=== PATIENT | female | born 1965 | race African-American/Black ===

== ENCOUNTER 2017-02-20 14:14 | Inpatient (IN) | payer OTHER, MEDICAID ==
[~2017-02-20] VITALS: Ht 170.2 cm; Wt 192.8 kg
[~2017-02-20 14:14] MED LIST: AMLODIPINE; BACTRIM; IBUPROFEN; LASIX; LOSARTAN; POTASSIUM CHLORIDE
[2017-02-20] MEDS ORDERED: NITROGLYCERIN OINT 1GM/INCH UDPKT TD STA (18:36)
[2017-02-20] MEDS ORDERED: ASPIRIN 81MG TABLET PO STA (18:36)
[2017-02-20] MEDS ORDERED: FUROSEMIDE 40MG/4ML VIAL IV STA (18:36)
[2017-02-20] MEDS ORDERED: CLONIDINE 0.1MG TABLET PO ONE (18:45)
[2017-02-20 19:25] LABS: BASOPHILS % 1.1 % (0.0-2.0); EOSINOPHILS % 0.9 % (0.0-5.0); HEMATOCRIT. 39.3 % (36.0-48.0); HEMOGLOBIN. 11.6 g/dL (12.0-16.0); LYMPHOCYTES % 20.6 % (20.0-50.0); MEAN CORPUSCULAR HEMOGLOBIN 21.8 pg (28.0-32.0); MEAN CORPUSCULAR VOLUME 73.9 fL (81.0-99.0); MEAN PLATELET VOLUME 8.6 fl (7.4-10.4); MONOCYTES % 6.3 % (2.0-8.0); NEUTROPHILS % 71.1 % (40.0-76.0); PLATELET 305 x1000/uL (130-400); RED BLOOD CELL COUNT 5.32 mill/uL (4.2-5.4); RED CELL DISTRIBUTION WIDTH 20.3 % (11.6-14.6)
[2017-02-20 19:31] LABS: CHLORIDE 101 mEq/L (98-107)
[2017-02-20 19:32] LABS: PARTIAL THROMBOPLASTIN TIME 25.2 sec (23.4-31.0); PROTHROMBIN TIME 10.9 sec (9.4-11.6)
[2017-02-20 19:36] LABS: CARBON DIOXIDE 35 mEq/L (21-32)
[2017-02-20 19:42] LABS: TROPONIN I < 0.02 ng/mL (0.00-0.04)
[2017-02-20] MEDS ORDERED: ENOXAPARIN 150MG/ML SYR SUBCUT ONE (21:45)
[2017-02-21] VITALS (7 sets, daily range): BP systolic 129–163; BP diastolic 51–90
[2017-02-21] MEDS ORDERED: DOCUSATE SODIUM 100MG CAPSULE PO PRN
[2017-02-21] MEDS ORDERED: ACETAMINOPHEN 650MG/20.3ML UDC GT PRN
[2017-02-21] MEDS ORDERED: GUAIFENESIN 200MG/10ML SUGAR FREE UDC PO PRN
[2017-02-21] MEDS ORDERED: MORPHINE SULFATE 4 MG/ML CPJ (NOT FOR IM USE) IV PRN
[2017-02-21] MEDS ORDERED: MAGNESIUM/ALUMINUM HYDROXIDE/SIMETHICONE 30ML UDC PO PRN
[2017-02-21] MEDS ORDERED: IPRATROPIUM/ALBUTEROL 0.5-3(2.5)MG/3ML NEB INH PRN
[2017-02-21] MEDS ORDERED: ACETAMINOPHEN 650MG SUPP PR PRN
[2017-02-21] MEDS ORDERED: NA PHOS,M-B/NA PHOS,DI-BA ENEMA 118ML PR PRN
[2017-02-21] MEDS ORDERED: DIPHENHYDRAMINE 50MG/ML VIAL IV PRN
[2017-02-21] MEDS ORDERED: ONDANSETRON HCL 4MG/2ML VIAL IV PRN
[2017-02-21] MEDS ORDERED: ENOXAPARIN 40MG/0.4ML SYR SUBCUT SCH
[2017-02-21] MEDS ORDERED: METOPROLOL (01:46)
[2017-02-21] MEDS ORDERED: LIPITOR (01:46)
[2017-02-21] MEDS ORDERED: LISI-186 PO (01:46)
[2017-02-21] MEDS: ACETAMINOPHEN 325MG TABLET PO PRN ×2 (02:39→23:46)
[2017-02-21] MEDS: FUROSEMIDE 40MG/4ML VIAL IV SCH ×2 (02:56→09:04)
[2017-02-21] MEDS ORDERED: ENOXAPARIN 60MG/0.6ML SYR SUBCUT SCH (03:00)
[2017-02-21 06:56] LABS: BASOPHILS % 0.8 % (0.0-2.0); HEMATOCRIT. 39.2 % (36.0-48.0); HEMOGLOBIN. 11.3 g/dL (12.0-16.0); LYMPHOCYTES % 21.4 % (20.0-50.0); MEAN CORPUSCULAR HEMOGLOBIN 21.5 pg (28.0-32.0); MEAN CORPUSCULAR VOLUME 74.3 fL (81.0-99.0); MEAN PLATELET VOLUME 7.1 fl (7.4-10.4); MONOCYTES % 5.9 % (2.0-8.0); NEUTROPHILS % 70.9 % (40.0-76.0); PLATELET 298 x1000/uL (130-400); RED BLOOD CELL COUNT 5.27 mill/uL (4.2-5.4); RED CELL DISTRIBUTION WIDTH 20.4 % (11.6-14.6)
[2017-02-21] MEDS: SODIUM CHLORIDE 0.9% INJ 3ML FLUSH IVF SCH (07:02)
[2017-02-21 07:58] LABS: CARBON DIOXIDE 35 mEq/L (21-32); CHLORIDE 100 mEq/L (98-107); CREATINE KINASE 167 IU/L (26-192); HDL CHOLESTEROL 53 mg/dL (40-59); LDL CHOLESTEROL 86 mg/dL (5-100)
[2017-02-21 07:59] LABS: CREATINE KINASE MB FRACTION 1.6 ng/mL (0.5-3.6); TROPONIN I < 0.02 ng/mL (0.00-0.04)
[2017-02-21] MEDS ORDERED: INFLUENZA VIRUS VACCINE 0.5ML SYR IM ONE (12:00)
[2017-02-21] MEDS ORDERED: PNEUMOCOCCAL 23-VAL P-SAC VAC 0.5 ML IM ONE (12:00)
[2017-02-21 12:06] LABS: T4 FREE 1.11 ng/dL (0.76-1.46)
[2017-02-21] MEDS ORDERED: HYDROCODONE/ACETAMINOPHEN 5/325MG TABLET PO PRN (12:30)
[2017-02-21 16:29] LABS: CREATINE KINASE 186 IU/L (26-192); TROPONIN I < 0.02 ng/mL (0.00-0.04)
[2017-02-21 16:30] LABS: CREATINE KINASE MB FRACTION 1.6 ng/mL (0.5-3.6)
[2017-02-21 23:27] LABS: CLARITY URINE TURBID (CLEAR); COLOR URINE RED (YELLOW); KETONES URINE NEGATIVE (NEGATIVE); LEUKOCYTE ESTERASE URINE 2+ (NEGATIVE); NITRITE URINE POSITIVE (NEGATIVE); OCCULT BLOOD URINE 3+ (NEGATIVE); PROTEIN URINE 2+ (NEGATIVE); UROBILINOGEN URINE 0.2 E.U./dL (0.2-1.0)
[2017-02-21] MEDS: CLONIDINE 0.1MG TABLET PO PRN (23:53)
[2017-02-22] VITALS: BP 132/57
[2017-02-22 00:19] LABS: *AMPHETAMINES SCREEN URINE NEGATIVE (NEGATIVE); *BARBITURATES SCREEN URINE NEGATIVE (NEGATIVE); *BENZODIAZEPINES SCREEN URINE NEGATIVE (NEGATIVE); *COCAINE SCREEN URINE PRESUMTIVE POSITIVE (NEGATIVE); CANNABINOID URINE SCREEN NEGATIVE (NEGATIVE); METHADONE URINE SCREEN NEGATIVE (NEGATIVE); OPIATES URINE SCREEN NEGATIVE (NEGATIVE); PHENCYCLIDINE URINE SCREEN NEGATIVE (NEGATIVE)
[2017-02-22 04:00] VITALS: BP 135/59
[2017-02-22] MEDS: SODIUM CHLORIDE 0.9% INJ 3ML FLUSH IVF SCH ×3 (06:45→13:39)
[2017-02-22 08:00] VITALS: BP 135/55
[2017-02-22] MEDS: FUROSEMIDE 40MG/4ML VIAL IV SCH (09:48)
[2017-02-22 10:48] LABS: BASOPHILS % 0.9 % (0.0-2.0); EOSINOPHILS % 0.3 % (0.0-5.0); HEMATOCRIT. 38.5 % (36.0-48.0); HEMOGLOBIN. 11.7 g/dL (12.0-16.0); LYMPHOCYTES % 17.2 % (20.0-50.0); MEAN CORPUSCULAR HEMOGLOBIN 22.5 pg (28.0-32.0); MEAN CORPUSCULAR VOLUME 74.2 fL (81.0-99.0); MEAN PLATELET VOLUME 7.2 fl (7.4-10.4); MONOCYTES % 6.2 % (2.0-8.0); NEUTROPHILS % 75.4 % (40.0-76.0); PLATELET 297 x1000/uL (130-400); RED BLOOD CELL COUNT 5.19 mill/uL (4.2-5.4); RED CELL DISTRIBUTION WIDTH 20.2 % (11.6-14.6)
[2017-02-22 11:02] LABS: CARBON DIOXIDE 38 mEq/L (21-32); CHLORIDE 97 mEq/L (98-107)
[2017-02-22 12:00] VITALS: BP 161/85
[2017-02-22] MEDS: CLONIDINE 0.1MG TABLET PO PRN ×2 (12:39→19:57)
[2017-02-22 16:00] VITALS: BP 157/61
== END 2017-02-22 20:40 | disposition short-term general hospital (02) | DRG 291 ==
LOC: ER 14:51 → 5WST 20:19 → EDBEDREQ 20:21 → EDBEDREQTM 20:21 → ENRESERV 21:04
PROVIDERS: ADMIT Family Medicine; ATTEND Family Medicine
DX: I11.0 Hypertensive heart disease with heart failure (principal); E43 Unspecified severe protein-calorie malnutrition; E66.01 Morbid (severe) obesity due to excess calories; Z68.44 Body mass index [BMI] 60.0-69.9, adult; R71.0 Precipitous drop in hematocrit; R07.9 Chest pain, unspecified; I50.33 Acute on chronic diastolic (congestive) heart failure; D25.9 Leiomyoma of uterus, unspecified; F12.90 Cannabis use, unspecified, uncomplicated; G47.33 Obstructive sleep apnea (adult) (pediatric); Z86.711 Personal history of pulmonary embolism; Z88.0 Allergy status to penicillin; Z88.5 Allergy status to narcotic agent
CPT/HCPCS: 36415; 71045; 76856; 78580; 80053; 80061; 80305; 81001; 82550; 82553; 82962; 83036; 83880; 84439; 84443; 84484; 85018; 85025; 85379; 85610; 85730; 87077; 87086; 87186; 90686; 90732; 93005; 93970; 96372; 96374; 99285; J1650; J1940; J2270; A4315

== ENCOUNTER 2018-03-24 13:27 | Inpatient (IN) | payer OTHER, MEDICAID ==
[~2018-03-24] VITALS: Ht 165.1 cm; Wt 166.0 kg
[2018-03-24] VITALS (11 sets, daily range): BP systolic 119–181; BP diastolic 64–92
[~2018-03-24 13:27] MED LIST changes: +LIPITOR; +LISI-186 PO; +METOPROLOL
[2018-03-24] MEDS ORDERED: METHYLPREDNISOLONE SOD SUCC 125 MG/2 ML VIAL IV STA (13:32)
[2018-03-24] MEDS ORDERED: IPRATROPIUM BROMIDE (0.02%) 0.5MG/2.5ML NEB HHN STA (13:32)
[2018-03-24] MEDS ORDERED: ALBUTEROL (0.083%) 2.5MG/3ML NEB HHN STA (13:32)
[2018-03-24] MEDS ORDERED: FUROSEMIDE 40MG/4ML VIAL IVP ONE (13:45)
[2018-03-24] MEDS ORDERED: ETOMIDATE 2MG/ML 10ML VIAL IV ONE ×2 (14:23→15:30)
[2018-03-24] MEDS ORDERED: SUCCINYLCHOLINE CHLORIDE 200MG/10ML IV ONE ×2 (14:23→15:30)
[2018-03-24 14:28] LABS: BASOPHILS % 0.8 % (0.0-2.0); EOSINOPHILS % 0.8 % (0.0-5.0); LYMPHOCYTES % 20.4 % (20.0-50.0); MEAN CORPUSCULAR VOLUME 80.2 fL (81.0-99.0); MEAN PLATELET VOLUME 7.1 fl (7.4-10.4); MONOCYTES % 6.8 % (2.0-8.0); NEUTROPHILS % 71.2 % (40.0-76.0); PLATELET 249 x1000/uL (130-400); RED BLOOD CELL COUNT 4.99 mill/uL (4.2-5.4); RED CELL DISTRIBUTION WIDTH 18.3 % (11.6-14.6)
[2018-03-24 14:34] LABS: CHLORIDE 101 mEq/L (98-107)
[2018-03-24 14:41] LABS: PARTIAL THROMBOPLASTIN TIME 28.2 sec (23.4-31.0); PROTHROMBIN TIME 10.3 sec (9.1-11.1)
[2018-03-24 15:06] LABS: BG BASE EXCESS 7.2 mmol/L (-2.0-2.0); BG BILEVEL POS AIRWAY PRESSURE 18/5; BG CARBOXYHEMOGLOBIN 4.4 % (0.5-1.5); BG DEOXYHEMOGLOBIN 7.7 % (0.0-5.0); BG FRACTION INSPIRED OXYGEN 90; BG HCO3 ACT 38.8 mmol/L (22.0-26.0); BG METHEMOGLOBIN 0.3 % (0.0-1.5); BG OXYGEN SATURATION 91.9 % (92.0-98.5); BG OXYHEMOGLOBIN 87.6 % (94.0-97.0); BG PCO2 100.9 mmHg (35.0-45.0); BG PH 7.203 (7.350-7.450); BG PO2 74.3 mmHg (75.0-100.0); BG SAMPLE SITE RIGHT RADIAL; BG TOTAL HEMOGLOBIN 13.2 g/dL (12.0-18.0); BG VENT MODE MASK - BIPAP; BG VENT RATE 14 set
[2018-03-24] MEDS ORDERED: LORAZEPAM 2MG/ML CPJ IV ONE ×2 (15:30→17:00)
[2018-03-24] MEDS ORDERED: MIDAZOLAM HCL 50 MG in DEXTROSE 5% WATER 40 ML IV ONE ×6 (15:30→17:15)
[2018-03-24] MEDS ORDERED: SODIUM CHLORIDE 0.9% 10ML VIAL ONE (15:45)
[2018-03-24] MEDS ORDERED: VECURONIUM BROMIDE 10 MG/VIAL IV ONE ×2 (15:45→18:30)
[2018-03-24 16:27] LABS: BG BASE EXCESS 9.5 mmol/L (-2.0-2.0); BG CARBOXYHEMOGLOBIN 3.9 % (0.5-1.5); BG DEOXYHEMOGLOBIN 7.7 % (0.0-5.0); BG FRACTION INSPIRED OXYGEN 60; BG METHEMOGLOBIN 0.2 % (0.0-1.5); BG OXYHEMOGLOBIN 88.2 % (94.0-97.0); BG PCO2 89.7 mmHg (35.0-45.0); BG PH 7.267 (7.350-7.450); BG PO2 73.2 mmHg (75.0-100.0); BG SAMPLE SITE RIGHT RADIAL; BG TIDAL VOLUME(mL) 600 mL; BG TOTAL HEMOGLOBIN 13.3 g/dL (12.0-18.0); BG VENT MODE VENT - A/C; BG VENT RATE 16 set
[2018-03-24] MEDS ORDERED: IPRATROPIUM/ALBUTEROL 0.5-3(2.5)MG/3ML NEB HHN PRN (17:00)
[2018-03-24] MEDS ORDERED: PROPOFOL 10MG/ML 100ML 100 ML IV SCH (17:00)
[2018-03-24] MEDS ORDERED: FUROSEMIDE 40MG/4ML VIAL IVP SCH (17:00)
[2018-03-24 17:45] LABS: BG BASE EXCESS 7.5 mmol/L (-2.0-2.0); BG CARBOXYHEMOGLOBIN 3.3 % (0.5-1.5); BG DEOXYHEMOGLOBIN 14.2 % (0.0-5.0); BG FRACTION INSPIRED OXYGEN 60; BG METHEMOGLOBIN 0.2 % (0.0-1.5); BG OXYGEN SATURATION 85.3 % (92.0-98.5); BG OXYHEMOGLOBIN 82.3 % (94.0-97.0); BG PCO2 71.1 mmHg (35.0-45.0); BG PH 7.322 (7.350-7.450); BG PO2 50.7 mmHg (75.0-100.0); BG SAMPLE SITE RIGHT RADIAL; BG TIDAL VOLUME(mL) 600 mL; BG VENT MODE VENT - A/C; BG VENT RATE 18 set
[2018-03-24] MEDS ORDERED: ATROPINE SULFATE 1MG/ML VIAL IV ONE (17:45)
[2018-03-24] MEDS ORDERED: ATROPINE SULFATE 1MG/10ML SYR ONE (17:46)
[2018-03-24] MEDS ORDERED: DOPAMINE 400MG/250ML PREMIX 250 ML IV ONE (18:00)
[2018-03-24 18:06] LABS: CLARITY URINE CLEAR (CLEAR); COLOR URINE YELLOW (YELLOW); KETONES URINE NEGATIVE (NEGATIVE); LEUKOCYTE ESTERASE URINE NEGATIVE (NEGATIVE); NITRITE URINE NEGATIVE (NEGATIVE); OCCULT BLOOD URINE 1+ (NEGATIVE); PH URINE 5.5 (4.5-8.0); PROTEIN URINE 1+ (NEGATIVE); SPECIFIC GRAVITY URINE 1.017 (1.005-1.030); UROBILINOGEN URINE 0.2 E.U./dL (0.2-1.0)
[2018-03-24 18:19] LABS: *AMPHETAMINES SCREEN URINE NEGATIVE (NEGATIVE)
[2018-03-24 18:20] LABS: *BARBITURATES SCREEN URINE NEGATIVE (NEGATIVE); *BENZODIAZEPINES SCREEN URINE NEGATIVE (NEGATIVE); *COCAINE SCREEN URINE PRESUMTIVE POSITIVE (NEGATIVE); METHADONE URINE SCREEN NEGATIVE (NEGATIVE); OPIATES URINE SCREEN NEGATIVE (NEGATIVE); PHENCYCLIDINE URINE SCREEN NEGATIVE (NEGATIVE)
[2018-03-24 18:21] LABS: CANNABINOID URINE SCREEN NEGATIVE (NEGATIVE)
[2018-03-24] MEDS ORDERED: CEFTRIAXONE SODIUM 1 G/VIAL IM ONE (18:30)
[2018-03-24] MEDS ORDERED: LIDOCAINE HCL 1% 20ML VIAL (Pyxis) INJ INFIL ONE (18:30)
[2018-03-24] MEDS ORDERED: ONDANSETRON HCL 4MG/2ML INJ IV PRN (18:30)
[2018-03-24] MEDS ORDERED: ACETAMINOPHEN 650MG SUPP PR PRN (18:30)
[2018-03-24] MEDS: PANTOPRAZOLE SODIUM 40 MG/VIAL IV SCH (21:43)
[2018-03-24] MEDS: ENOXAPARIN 30MG/0.3ML SYR SUBCUT SCH (21:44)
[2018-03-24 23:59] LABS: CREATINE KINASE 284 IU/L (26-192)
[2018-03-25] VITALS (68 sets, daily range): BP systolic 100–183; BP diastolic 47–111
[2018-03-25 00:01] LABS: CREATINE KINASE MB FRACTION 2.4 ng/mL (0.5-3.6)
[2018-03-25] MEDS: PROPOFOL 10MG/ML 100ML 100 ML IV PRN ×4 (05:15→21:41)
[2018-03-25 06:50] LABS: CHLORIDE 102 mEq/L (98-107)
[2018-03-25 06:57] LABS: LDL CHOLESTEROL 88 mg/dL (5-100)
[2018-03-25 06:58] LABS: HDL CHOLESTEROL 53 mg/dL (40-59)
[2018-03-25 06:59] LABS: BASOPHILS % 0.3 % (0.0-2.0); HEMATOCRIT. 41.6 % (36.0-48.0); HEMOGLOBIN. 12.8 g/dL (12.0-16.0); LYMPHOCYTES % 11.4 % (20.0-50.0); MEAN CORPUSCULAR HEMOGLOBIN 24.5 pg (28.0-32.0); MEAN CORPUSCULAR VOLUME 79.6 fL (81.0-99.0); MEAN PLATELET VOLUME 7.9 fl (7.4-10.4); NEUTROPHILS % 84.3 % (40.0-76.0); PLATELET 254 x1000/uL (130-400); RED BLOOD CELL COUNT 5.23 mill/uL (4.2-5.4); RED CELL DISTRIBUTION WIDTH 18.7 % (11.6-14.6)
[2018-03-25 07:01] LABS: CREATINE KINASE MB FRACTION 9.4 ng/mL (0.5-3.6)
[2018-03-25 07:11] LABS: CREATINE KINASE 1553 IU/L (26-192)
[2018-03-25 08:19] LABS: BG BASE EXCESS 7.6 mmol/L (-2.0-2.0); BG CARBOXYHEMOGLOBIN 1.1 % (0.5-1.5); BG DEOXYHEMOGLOBIN 8.5 % (0.0-5.0); BG HCO3 ACT 34.2 mmol/L (22.0-26.0); BG METHEMOGLOBIN 0.4 % (0.0-1.5); BG OXYGEN SATURATION 91.4 % (92.0-98.5); BG PCO2 56.6 mmHg (35.0-45.0); BG PH 7.399 (7.350-7.450); BG PO2 62.4 mmHg (75.0-100.0); BG SAMPLE SITE RIGHT RADIAL; BG TIDAL VOLUME(mL) 600 mL; BG TOTAL HEMOGLOBIN 13.1 g/dL (12.0-18.0); BG VENT MODE VENT - A/C; BG VENT RATE 18 set
[2018-03-25] MEDS: IPRATROPIUM/ALBUTEROL 0.5-3(2.5)MG/3ML NEB HHN SCH ×5 (08:20→20:30)
[2018-03-25] MEDS: PANTOPRAZOLE SODIUM 40 MG/VIAL IV SCH (09:19)
[2018-03-25] MEDS: FUROSEMIDE 40MG/4ML VIAL IV SCH ×2 (09:20→16:02)
[2018-03-25] MEDS: ENOXAPARIN 30MG/0.3ML SYR SUBCUT SCH (09:20)
[2018-03-25] MEDS ORDERED: HYDRALAZINE 20MG/ML VIAL IV PRN (09:45)
[2018-03-25] MEDS ORDERED: FUROSEMIDE 40MG/4ML VIAL IVP NR (11:00)
[2018-03-25 16:40] LABS: CREATINE KINASE 4334 IU/L (26-192)
[2018-03-25] MEDS: ACETYLCYSTEINE 100MG/ML 10% VIAL 4ML INH SCH (16:41)
[2018-03-25] MEDS: ENOXAPARIN 40MG/0.4ML SYR SUBCUT SCH (20:59)
[2018-03-26] VITALS (90 sets, daily range): BP systolic 76–155; BP diastolic 38–86
[2018-03-26] MEDS: IPRATROPIUM/ALBUTEROL 0.5-3(2.5)MG/3ML NEB HHN SCH ×6 (00:06→20:28)
[2018-03-26] MEDS: ACETYLCYSTEINE 100MG/ML 10% VIAL 4ML INH SCH ×3 (00:06→16:55)
[2018-03-26 00:30] LABS: CREATINE KINASE 4706 IU/L (26-192)
[2018-03-26] MEDS: PROPOFOL 10MG/ML 100ML 100 ML IV PRN ×8 (00:49→23:18)
[2018-03-26] MEDS: MORPHINE SULFATE 4 MG/ML CPJ (NOT FOR IM USE) IV PRN ×2 (04:04→22:10)
[2018-03-26 04:53] LABS: BASOPHILS % 0.7 % (0.0-2.0); EOSINOPHILS % 0.1 % (0.0-5.0); HEMATOCRIT. 39.7 % (36.0-48.0); HEMOGLOBIN. 11.8 g/dL (12.0-16.0); LYMPHOCYTES % 14.2 % (20.0-50.0); MEAN CORPUSCULAR HEMOGLOBIN 23.5 pg (28.0-32.0); MEAN CORPUSCULAR VOLUME 78.7 fL (81.0-99.0); MEAN PLATELET VOLUME 7.8 fl (7.4-10.4); MONOCYTES % 8.6 % (2.0-8.0); NEUTROPHILS % 76.4 % (40.0-76.0); PLATELET 272 x1000/uL (130-400); RED BLOOD CELL COUNT 5.04 mill/uL (4.2-5.4); RED CELL DISTRIBUTION WIDTH 18.1 % (11.6-14.6)
[2018-03-26 05:01] LABS: CHLORIDE 101 mEq/L (98-107)
[2018-03-26 05:32] LABS: CREATINE KINASE 5142 IU/L (26-192)
[2018-03-26] MEDS: FUROSEMIDE 40MG/4ML VIAL IV SCH (08:35)
[2018-03-26] MEDS: PANTOPRAZOLE SODIUM 40 MG/VIAL IV SCH (08:36)
[2018-03-26] MEDS: ENOXAPARIN 40MG/0.4ML SYR SUBCUT SCH ×2 (08:37→22:09)
[2018-03-26] MEDS ORDERED: LIDOCAINE HCL 1% 20ML VIAL (Pyxis) INJ ONE (08:45)
[2018-03-26] MEDS ORDERED: SODIUM BICARBONATE 4% (2.4MEQ) 5ML VIAL IV ONE (08:45)
[2018-03-26 09:10] LABS: T4 FREE 1.36 ng/dL (0.76-1.46)
[2018-03-26 11:35] LABS: BG BASE EXCESS 8.9 mmol/L (-2.0-2.0); BG CARBOXYHEMOGLOBIN 0.9 % (0.5-1.5); BG DEOXYHEMOGLOBIN 9.6 % (0.0-5.0); BG FRACTION INSPIRED OXYGEN 100; BG HCO3 ACT 36.4 mmol/L (22.0-26.0); BG METHEMOGLOBIN 0.4 % (0.0-1.5); BG OXYGEN SATURATION 90.3 % (92.0-98.5); BG OXYHEMOGLOBIN 89.1 % (94.0-97.0); BG PCO2 64.7 mmHg (35.0-45.0); BG PH 7.368 (7.350-7.450); BG PO2 65.3 mmHg (75.0-100.0); BG SAMPLE SITE RIGHT BRACHIAL; BG TIDAL VOLUME(mL) 600 mL; BG TOTAL HEMOGLOBIN 12.6 g/dL (12.0-18.0); BG VENT MODE VENT - A/C; BG VENT RATE 18 set
[2018-03-26] MEDS ORDERED: PROPOFOL 10MG/ML 100ML 100 ML IV PRN (15:00)
[2018-03-26] MEDS ORDERED: POTASSIUM CHLORIDE 20MEQ/PACKET PO NR (16:30)
[2018-03-26] MEDS: METRONIDAZOLE 500 MG PREMIX 100 ML IV SCH (17:11)
[2018-03-26] MEDS: FUROSEMIDE 40MG/4ML VIAL IVP SCH (17:12)
[2018-03-26] MEDS ORDERED: FUROSEMIDE 40MG/4ML VIAL IVP SCH (17:15)
[2018-03-26 17:20] LABS: CREATINE KINASE MB FRACTION 6.3 ng/mL (0.5-3.6)
[2018-03-26] MEDS: LEVOFLOXACIN 500MG PREMIX 100 ML IV SCH (17:21)
[2018-03-26 17:31] LABS: CREATINE KINASE 3820 IU/L (26-192)
[2018-03-26] MEDS ORDERED: VANCOMYCIN 2,000 MG in DEXT 5% WATER 500 ML IV NR (18:00)
[2018-03-27] VITALS (64 sets, daily range): BP systolic 110–152; BP diastolic 49–117
[2018-03-27] MEDS: ACETYLCYSTEINE 100MG/ML 10% VIAL 4ML INH SCH ×3 (00:01→15:45)
[2018-03-27] MEDS: IPRATROPIUM/ALBUTEROL 0.5-3(2.5)MG/3ML NEB HHN SCH ×6 (00:01→21:02)
[2018-03-27] MEDS: METRONIDAZOLE 500 MG PREMIX 100 ML IV SCH ×3 (00:57→16:49)
[2018-03-27 01:47] LABS: CREATINE KINASE MB FRACTION 4.3 ng/mL (0.5-3.6)
[2018-03-27 01:56] LABS: CREATINE KINASE 3460 IU/L (26-192)
[2018-03-27] MEDS: PROPOFOL 10MG/ML 100ML 100 ML IV PRN ×7 (02:14→21:51)
[2018-03-27] MEDS: FUROSEMIDE 40MG/4ML VIAL IVP SCH ×2 (06:44→16:50)
[2018-03-27 07:41] LABS: BG BASE EXCESS 6.2 mmol/L (-2.0-2.0); BG CARBOXYHEMOGLOBIN 0.7 % (0.5-1.5); BG DEOXYHEMOGLOBIN 8.1 % (0.0-5.0); BG HCO3 ACT 33.8 mmol/L (22.0-26.0); BG METHEMOGLOBIN 0.2 % (0.0-1.5); BG OXYGEN SATURATION 91.8 % (92.0-98.5); BG PCO2 63.6 mmHg (35.0-45.0); BG PH 7.343 (7.350-7.450); BG PO2 71.7 mmHg (75.0-100.0); BG SAMPLE SITE RIGHT RADIAL; BG TIDAL VOLUME(mL) 600 mL; BG TOTAL HEMOGLOBIN 12.5 g/dL (12.0-18.0); BG VENT MODE VENT - A/C; BG VENT RATE 18 set
[2018-03-27] MEDS: PANTOPRAZOLE SODIUM 40 MG/VIAL IV SCH (08:28)
[2018-03-27] MEDS: ENOXAPARIN 40MG/0.4ML SYR SUBCUT SCH ×2 (08:37→20:27)
[2018-03-27] MEDS: MORPHINE SULFATE 4 MG/ML CPJ (NOT FOR IM USE) IV PRN (08:39)
[2018-03-27 09:20] LABS: CHLORIDE 101 mEq/L (98-107)
[2018-03-27 09:22] LABS: HEMATOCRIT. 37.7 % (36.0-48.0); HEMOGLOBIN. 11.2 g/dL (12.0-16.0); MEAN CORPUSCULAR HEMOGLOBIN 23.5 pg (28.0-32.0); MEAN CORPUSCULAR VOLUME 79.1 fL (81.0-99.0); PLATELET 246 x1000/uL (130-400); RED BLOOD CELL COUNT 4.76 mill/uL (4.2-5.4); RED CELL DISTRIBUTION WIDTH 18.3 % (11.6-14.6)
[2018-03-27 09:35] LABS: CREATINE KINASE MB FRACTION 3.2 ng/mL (0.5-3.6)
[2018-03-27 09:48] LABS: CREATINE KINASE 3086 IU/L (26-192)
[2018-03-27] MEDS: VANCOMYCIN 1,750 MG in DEXT 5% WATER 250 ML IV SCH (11:47)
[2018-03-27 12:20] LABS: PLATELET ESTIMATE NORMAL
[2018-03-27] MEDS: LEVOFLOXACIN 500MG PREMIX 100 ML IV SCH (18:15)
[2018-03-28] VITALS (48 sets, daily range): BP systolic 101–138; BP diastolic 49–85
[2018-03-28] MEDS: PROPOFOL 10MG/ML 100ML 100 ML IV PRN ×9 (00:12→22:45)
[2018-03-28] MEDS: METRONIDAZOLE 500 MG PREMIX 100 ML IV SCH ×3 (00:48→16:42)
[2018-03-28] MEDS: IPRATROPIUM/ALBUTEROL 0.5-3(2.5)MG/3ML NEB HHN SCH ×6 (00:50→20:17)
[2018-03-28] MEDS: ACETYLCYSTEINE 100MG/ML 10% VIAL 4ML INH SCH ×3 (00:50→15:33)
[2018-03-28] MEDS: VANCOMYCIN 1,750 MG in DEXT 5% WATER 250 ML IV SCH (06:18)
[2018-03-28] MEDS: FUROSEMIDE 40MG/4ML VIAL IVP SCH ×2 (06:18→16:42)
[2018-03-28 06:20] LABS: VANCOMYCIN TROUGH 12.8 ug/mL (5.0-10.0)
[2018-03-28 08:15] LABS: BG BASE EXCESS 6.2 mmol/L (-2.0-2.0); BG CARBOXYHEMOGLOBIN 1.1 % (0.5-1.5); BG DEOXYHEMOGLOBIN 8.1 % (0.0-5.0); BG HCO3 ACT 34.5 mmol/L (22.0-26.0); BG METHEMOGLOBIN 0.4 % (0.0-1.5); BG OXYGEN SATURATION 91.8 % (92.0-98.5); BG OXYHEMOGLOBIN 90.4 % (94.0-97.0); BG PCO2 70.6 mmHg (35.0-45.0); BG PH 7.307 (7.350-7.450); BG PO2 69.1 mmHg (75.0-100.0); BG SAMPLE SITE RIGHT RADIAL; BG TIDAL VOLUME(mL) 600 mL; BG TOTAL HEMOGLOBIN 11.7 g/dL (12.0-18.0); BG VENT MODE VENT - A/C; BG VENT RATE 18 set
[2018-03-28] MEDS: DOCUSATE SODIUM SUGAR FREE 100MG/10ML UDC NG SCH (09:14)
[2018-03-28] MEDS: PANTOPRAZOLE SODIUM 40 MG/VIAL IV SCH (09:15)
[2018-03-28] MEDS: ACETAMINOPHEN 650MG/20.3ML UDC PO PRN (09:15)
[2018-03-28 09:24] LABS: HEMATOCRIT. 36.2 % (36.0-48.0); HEMOGLOBIN. 10.6 g/dL (12.0-16.0); MEAN CORPUSCULAR HEMOGLOBIN 23.3 pg (28.0-32.0); MEAN CORPUSCULAR VOLUME 79.6 fL (81.0-99.0); PLATELET 230 x1000/uL (130-400); RED BLOOD CELL COUNT 4.55 mill/uL (4.2-5.4); RED CELL DISTRIBUTION WIDTH 18.5 % (11.6-14.6)
[2018-03-28] MEDS: ENOXAPARIN 40MG/0.4ML SYR SUBCUT SCH ×2 (09:36→20:33)
[2018-03-28 09:37] LABS: PHOSPHORUS 3.6 mg/dL (2.5-4.9)
[2018-03-28] MEDS: DIPHENHYDRAMINE 50MG/ML VIAL IV PRN ×2 (12:30→17:51)
[2018-03-28 13:26] LABS: PLATELET ESTIMATE NORMAL
[2018-03-28] MEDS: LORAZEPAM 2MG/ML CPJ IV PRN ×2 (16:00→20:36)
[2018-03-28] MEDS: LEVOFLOXACIN 500MG PREMIX 100 ML IV SCH (17:49)
[2018-03-29] VITALS (61 sets, daily range): BP systolic 106–136; BP diastolic 38–74
[2018-03-29] MEDS: IPRATROPIUM/ALBUTEROL 0.5-3(2.5)MG/3ML NEB HHN SCH ×6 (00:06→20:17)
[2018-03-29] MEDS: ACETYLCYSTEINE 100MG/ML 10% VIAL 4ML INH SCH ×3 (00:06→16:41)
[2018-03-29] MEDS: VANCOMYCIN 1,750 MG in DEXT 5% WATER 250 ML IV SCH ×2 (00:18→17:28)
[2018-03-29] MEDS: METRONIDAZOLE 500 MG PREMIX 100 ML IV SCH ×3 (02:35→17:21)
[2018-03-29] MEDS: PROPOFOL 10MG/ML 100ML 100 ML IV PRN ×5 (06:35→21:31)
[2018-03-29 07:27] LABS: CHLORIDE 104 mEq/L (98-107)
[2018-03-29 07:30] LABS: HEMATOCRIT. 35.7 % (36.0-48.0); HEMOGLOBIN. 10.4 g/dL (12.0-16.0); MEAN CORPUSCULAR HEMOGLOBIN 23.3 pg (28.0-32.0); MEAN CORPUSCULAR VOLUME 79.9 fL (81.0-99.0); PLATELET 244 x1000/uL (130-400); RED BLOOD CELL COUNT 4.47 mill/uL (4.2-5.4); RED CELL DISTRIBUTION WIDTH 18.3 % (11.6-14.6)
[2018-03-29] MEDS: PANTOPRAZOLE SODIUM 40 MG/VIAL IV SCH (08:22)
[2018-03-29] MEDS: FUROSEMIDE 40MG/4ML VIAL IVP SCH ×2 (08:22→17:20)
[2018-03-29] MEDS: DIPHENHYDRAMINE 50MG/ML VIAL IV PRN (08:22)
[2018-03-29] MEDS: DOCUSATE SODIUM SUGAR FREE 100MG/10ML UDC NG SCH (08:23)
[2018-03-29] MEDS: ENOXAPARIN 40MG/0.4ML SYR SUBCUT SCH ×2 (08:23→21:07)
[2018-03-29 08:46] LABS: BG BASE EXCESS 7.9 mmol/L (-2.0-2.0); BG CARBOXYHEMOGLOBIN 0.4 % (0.5-1.5); BG DEOXYHEMOGLOBIN 11.2 % (0.0-5.0); BG FRACTION INSPIRED OXYGEN 100; BG HCO3 ACT 36.9 mmol/L (22.0-26.0); BG METHEMOGLOBIN 0.3 % (0.0-1.5); BG OXYGEN SATURATION 88.7 % (92.0-98.5); BG OXYHEMOGLOBIN 88.1 % (94.0-97.0); BG PCO2 77.7 mmHg (35.0-45.0); BG PH 7.294 (7.350-7.450); BG SAMPLE SITE RIGHT RADIAL; BG TIDAL VOLUME(mL) 600 mL; BG TOTAL HEMOGLOBIN 11.9 g/dL (12.0-18.0); BG VENT MODE VENT - A/C; BG VENT RATE 18 set
[2018-03-29] MEDS ORDERED: BISACODYL 10MG SUPP PR PRN (09:15)
[2018-03-29] MEDS ORDERED: LACTULOSE 20G/30ML UDC PO PRN (09:15)
[2018-03-29 10:08] LABS: PLATELET ESTIMATE NORMAL
[2018-03-29] MEDS: LORAZEPAM 2MG/ML CPJ IV PRN ×2 (10:56→15:46)
[2018-03-29 13:19] LABS: BG BASE EXCESS 6.8 mmol/L (-2.0-2.0); BG CARBOXYHEMOGLOBIN 0.8 % (0.5-1.5); BG DEOXYHEMOGLOBIN 4.9 % (0.0-5.0); BG FRACTION INSPIRED OXYGEN 100; BG HCO3 ACT 35.6 mmol/L (22.0-26.0); BG METHEMOGLOBIN 0.4 % (0.0-1.5); BG OXYHEMOGLOBIN 93.9 % (94.0-97.0); BG PCO2 75.1 mmHg (35.0-45.0); BG PH 7.294 (7.350-7.450); BG PO2 83.1 mmHg (75.0-100.0); BG SAMPLE SITE RIGHT RADIAL; BG TIDAL VOLUME(mL) 500 mL; BG TOTAL HEMOGLOBIN 11.9 g/dL (12.0-18.0); BG VENT MODE VENT - A/C; BG VENT RATE 22 set
[2018-03-29] MEDS ORDERED: SUCCINYLCHOLINE CHLORIDE 200MG/10ML IV ONE (15:16)
[2018-03-29 17:20] LABS: CLARITY URINE TURBID (CLEAR); COLOR URINE DARK YELLOW (YELLOW); KETONES URINE NEGATIVE (NEGATIVE); LEUKOCYTE ESTERASE URINE 1+ (NEGATIVE); NITRITE URINE POSITIVE (NEGATIVE); OCCULT BLOOD URINE 3+ (NEGATIVE); PROTEIN URINE 2+ (NEGATIVE)
[2018-03-29] MEDS: LEVOFLOXACIN 500MG PREMIX 100 ML IV SCH (17:21)
[2018-03-30] VITALS (48 sets, daily range): BP systolic 104–135; BP diastolic 43–81
[2018-03-30] MEDS: IPRATROPIUM/ALBUTEROL 0.5-3(2.5)MG/3ML NEB HHN SCH ×5 (00:27→23:59)
[2018-03-30] MEDS: ACETYLCYSTEINE 100MG/ML 10% VIAL 4ML INH SCH ×3 (00:28→16:00)
[2018-03-30] MEDS: METRONIDAZOLE 500 MG PREMIX 100 ML IV SCH ×3 (00:55→16:31)
[2018-03-30] MEDS: PROPOFOL 10MG/ML 100ML 100 ML IV PRN ×6 (00:56→21:46)
[2018-03-30 06:20] LABS: HEMATOCRIT. 35.8 % (36.0-48.0); HEMOGLOBIN. 10.5 g/dL (12.0-16.0); MEAN CORPUSCULAR HEMOGLOBIN 23.7 pg (28.0-32.0); MEAN CORPUSCULAR VOLUME 80.6 fL (81.0-99.0); PLATELET 267 x1000/uL (130-400); RED BLOOD CELL COUNT 4.44 mill/uL (4.2-5.4); RED CELL DISTRIBUTION WIDTH 18.9 % (11.6-14.6)
[2018-03-30] MEDS: FUROSEMIDE 40MG/4ML VIAL IVP SCH (06:23)
[2018-03-30] MEDS: DOCUSATE SODIUM SUGAR FREE 100MG/10ML UDC NG SCH (09:39)
[2018-03-30] MEDS: PANTOPRAZOLE SODIUM 40 MG/VIAL IV SCH (09:39)
[2018-03-30] MEDS: LORAZEPAM 2MG/ML CPJ IV PRN ×2 (09:39→16:31)
[2018-03-30] MEDS: DIPHENHYDRAMINE 50MG/ML VIAL IV PRN ×2 (09:40→18:20)
[2018-03-30] MEDS: ENOXAPARIN 40MG/0.4ML SYR SUBCUT SCH ×2 (09:42→21:32)
[2018-03-30 10:52] LABS: BG CARBOXYHEMOGLOBIN 0.6 % (0.5-1.5); BG FRACTION INSPIRED OXYGEN 100; BG HCO3 ACT 36.2 mmol/L (22.0-26.0); BG METHEMOGLOBIN 0.5 % (0.0-1.5); BG OXYHEMOGLOBIN 97.9 % (94.0-97.0); BG PH 7.268 (7.350-7.450); BG PO2 159.5 mmHg (75.0-100.0); BG SAMPLE SITE RIGHT RADIAL; BG TIDAL VOLUME(mL) 500 mL; BG TOTAL HEMOGLOBIN 10.9 g/dL (12.0-18.0); BG VENT MODE VENT - A/C; BG VENT RATE 22 set
[2018-03-30] MEDS: THIAMINE HCL 100MG TABLET PO SCH (13:35)
[2018-03-30] MEDS: MULTIVITAMINS,THER W-MINERALS TABLET PO SCH (13:35)
[2018-03-30] MEDS: FOLIC ACID 1MG TABLET PO SCH (13:35)
[2018-03-30 16:32] LABS: PLATELET ESTIMATE NORMAL
[2018-03-30] MEDS ORDERED: VANCOMYCIN 2,000 MG in DEXT 5% WATER 500 ML IV SCH (18:00)
[2018-03-30] MEDS: LEVOFLOXACIN 500MG PREMIX 100 ML IV SCH (18:20)
[2018-03-31] VITALS (80 sets, daily range): BP systolic 94–156; BP diastolic 44–85
[2018-03-31] MEDS: METRONIDAZOLE 500 MG PREMIX 100 ML IV SCH ×3 (00:46→17:51)
[2018-03-31] MEDS: PROPOFOL 10MG/ML 100ML 100 ML IV PRN ×3 (00:47→08:50)
[2018-03-31] MEDS: IPRATROPIUM/ALBUTEROL 0.5-3(2.5)MG/3ML NEB HHN SCH ×5 (04:16→20:10)
[2018-03-31] MEDS: MULTIVITAMINS,THER W-MINERALS TABLET PO SCH (08:26)
[2018-03-31] MEDS: FOLIC ACID 1MG TABLET PO SCH (08:26)
[2018-03-31] MEDS: DOCUSATE SODIUM SUGAR FREE 100MG/10ML UDC NG SCH (08:26)
[2018-03-31] MEDS: PANTOPRAZOLE SODIUM 40 MG/VIAL IV SCH (08:26)
[2018-03-31] MEDS: THIAMINE HCL 100MG TABLET PO SCH (08:26)
[2018-03-31] MEDS: ENOXAPARIN 40MG/0.4ML SYR SUBCUT SCH ×2 (08:27→21:22)
[2018-03-31] MEDS ORDERED: FUROSEMIDE 40MG/4ML VIAL IVP SCH (09:00)
[2018-03-31] MEDS ORDERED: SODIUM CHLORIDE 0.9% 500 ML IV SCH (11:00)
[2018-03-31] MEDS: FENTANYL CITRATE/PF 500 MCG in SODIUM CHLORIDE 0.9% 40 ML IV PRN ×3 (11:37→22:07)
[2018-03-31] MEDS: MIDAZOLAM HCL 100 MG in DEXT 5% WATER 80 ML IV PRN ×2 (11:48→22:43)
[2018-03-31] MEDS: NITROFURANTOIN 100MG M/M CAPSULE PO SCH (21:21)
[2018-04-01] VITALS (94 sets, daily range): BP systolic 63–129; BP diastolic 26–69
[2018-04-01] MEDS: IPRATROPIUM/ALBUTEROL 0.5-3(2.5)MG/3ML NEB HHN SCH ×4 (00:03→20:34)
[2018-04-01] MEDS: METRONIDAZOLE 500 MG PREMIX 100 ML IV SCH ×3 (01:14→16:35)
[2018-04-01] MEDS: FENTANYL CITRATE/PF 500 MCG in SODIUM CHLORIDE 0.9% 40 ML IV PRN ×4 (03:24→21:23)
[2018-04-01] MEDS: ACETAMINOPHEN 650MG/20.3ML UDC PO PRN ×2 (04:08→15:43)
[2018-04-01] MEDS ORDERED: SODIUM CHLORIDE 0.9% 1,000 ML IV SCH (09:00)
[2018-04-01 09:01] LABS: BG BASE EXCESS 2.6 mmol/L (-2.0-2.0); BG CARBOXYHEMOGLOBIN 0.8 % (0.5-1.5); BG DEOXYHEMOGLOBIN 7.9 % (0.0-5.0); BG FRACTION INSPIRED OXYGEN 100; BG HCO3 ACT 31.7 mmol/L (22.0-26.0); BG METHEMOGLOBIN 0.3 % (0.0-1.5); BG PCO2 76.1 mmHg (35.0-45.0); BG PH 7.238 (7.350-7.450); BG PO2 74.1 mmHg (75.0-100.0); BG SAMPLE SITE RIGHT RADIAL; BG TIDAL VOLUME(mL) 500 mL; BG TOTAL HEMOGLOBIN 11.2 g/dL (12.0-18.0); BG VENT MODE VENT - A/C; BG VENT RATE 26 set
[2018-04-01] MEDS: PANTOPRAZOLE SODIUM 40 MG/VIAL IV SCH (09:44)
[2018-04-01] MEDS: THIAMINE HCL 100MG TABLET PO SCH (09:45)
[2018-04-01] MEDS: DOCUSATE SODIUM SUGAR FREE 100MG/10ML UDC NG SCH (09:45)
[2018-04-01] MEDS: NITROFURANTOIN 100MG M/M CAPSULE PO SCH (09:45)
[2018-04-01] MEDS: MULTIVITAMINS,THER W-MINERALS TABLET PO SCH (09:45)
[2018-04-01] MEDS: FOLIC ACID 1MG TABLET PO SCH (09:45)
[2018-04-01] MEDS: ENOXAPARIN 40MG/0.4ML SYR SUBCUT SCH (09:46)
[2018-04-01] MEDS: MIDAZOLAM HCL 100 MG in DEXT 5% WATER 80 ML IV PRN ×2 (12:18→21:22)
[2018-04-01 12:29] LABS: BG BASE EXCESS 3.6 mmol/L (-2.0-2.0); BG CARBOXYHEMOGLOBIN 0.6 % (0.5-1.5); BG DEOXYHEMOGLOBIN 12.7 % (0.0-5.0); BG FRACTION INSPIRED OXYGEN 100; BG HCO3 ACT 31.4 mmol/L (22.0-26.0); BG METHEMOGLOBIN 0.4 % (0.0-1.5); BG OXYGEN SATURATION 87.2 % (92.0-98.5); BG OXYHEMOGLOBIN 86.3 % (94.0-97.0); BG PCO2 64.9 mmHg (35.0-45.0); BG PH 7.302 (7.350-7.450); BG SAMPLE SITE RIGHT RADIAL; BG TIDAL VOLUME(mL) 550 mL; BG TOTAL HEMOGLOBIN 10.9 g/dL (12.0-18.0); BG VENT MODE VENT - A/C; BG VENT RATE 28 set
[2018-04-01] MEDS: SODIUM CHLORIDE 0.9% 1,000 ML IV SCH (15:46)
[2018-04-01] MEDS: SULFAMETHOXAZOLE/TRIMETHOPRIM 400/80MG TAB PO SCH (17:44)
[2018-04-01] MEDS ORDERED: VANCOMYCIN 1 G PREMIX 200 ML IV SCH (21:00)
[2018-04-02] VITALS (90 sets, daily range): BP systolic 91–146; BP diastolic 44–78
[2018-04-02] MEDS: ACETAMINOPHEN 650MG/20.3ML UDC PO PRN ×2 (00:20→12:24)
[2018-04-02] MEDS: IPRATROPIUM/ALBUTEROL 0.5-3(2.5)MG/3ML NEB HHN SCH ×4 (00:50→20:30)
[2018-04-02] MEDS: METRONIDAZOLE 500 MG PREMIX 100 ML IV SCH ×3 (02:06→17:24)
[2018-04-02] MEDS: FENTANYL CITRATE/PF 500 MCG in SODIUM CHLORIDE 0.9% 40 ML IV PRN ×2 (02:16→09:40)
[2018-04-02] MEDS: SULFAMETHOXAZOLE/TRIMETHOPRIM 400/80MG TAB PO SCH ×2 (06:38→17:24)
[2018-04-02] MEDS: SODIUM CHLORIDE 0.9% 1,000 ML IV SCH ×2 (06:38→06:43)
[2018-04-02] MEDS: LORAZEPAM 2MG/ML CPJ IV PRN (07:55)
[2018-04-02] MEDS: DIPHENHYDRAMINE 50MG/ML VIAL IV PRN (07:55)
[2018-04-02] MEDS: DOCUSATE SODIUM SUGAR FREE 100MG/10ML UDC NG SCH (08:03)
[2018-04-02] MEDS: PANTOPRAZOLE SODIUM 40 MG/VIAL IV SCH (08:04)
[2018-04-02] MEDS: THIAMINE HCL 100MG TABLET PO SCH (08:04)
[2018-04-02] MEDS: FOLIC ACID 1MG TABLET PO SCH (08:04)
[2018-04-02] MEDS: MULTIVITAMINS,THER W-MINERALS TABLET PO SCH (08:10)
[2018-04-02] MEDS: ENOXAPARIN 40MG/0.4ML SYR SUBCUT SCH (08:11)
[2018-04-02 09:13] LABS: BG BASE EXCESS -0.2 mmol/L (-2.0-2.0); BG CARBOXYHEMOGLOBIN 0.7 % (0.5-1.5); BG DEOXYHEMOGLOBIN 4.4 % (0.0-5.0); BG FRACTION INSPIRED OXYGEN 100; BG METHEMOGLOBIN 0.4 % (0.0-1.5); BG OXYGEN SATURATION 95.6 % (92.0-98.5); BG OXYHEMOGLOBIN 94.5 % (94.0-97.0); BG PH 7.293 (7.350-7.450); BG PO2 89.8 mmHg (75.0-100.0); BG SAMPLE SITE RIGHT BRACHIAL; BG TIDAL VOLUME(mL) 550 mL; BG TOTAL HEMOGLOBIN 10.2 g/dL (12.0-18.0); BG VENT MODE VENT - A/C; BG VENT RATE 28 set
[2018-04-02] MEDS: MIDAZOLAM HCL 100 MG in DEXT 5% WATER 80 ML IV PRN (09:41)
[2018-04-02] MEDS ORDERED: LIDOCAINE HCL 1% 20ML VIAL (Pyxis) INJ ONE (13:17)
[2018-04-02] MEDS ORDERED: HEPARIN SODIUM 1,000 UNIT/1ML VIAL IV NR (15:15)
[2018-04-02 17:06] LABS: ANTI-NUCLEAR ANTIBODIES DIRECT Negative (Negative)
[2018-04-02 18:34] LABS: BG BASE EXCESS -0.7 mmol/L (-2.0-2.0); BG CARBOXYHEMOGLOBIN 0.1 % (0.5-1.5); BG DEOXYHEMOGLOBIN 1.3 % (0.0-5.0); BG METHEMOGLOBIN 0.3 % (0.0-1.5); BG OXYGEN SATURATION 98.7 % (92.0-98.5); BG OXYHEMOGLOBIN 98.3 % (94.0-97.0); BG PCO2 60.1 mmHg (35.0-45.0); BG PO2 147.5 mmHg (75.0-100.0); BG SAMPLE SITE RIGHT RADIAL; BG TIDAL VOLUME(mL) 550 mL; BG VENT MODE VENT - A/C; BG VENT RATE 28 set
[2018-04-03] VITALS (76 sets, daily range): BP systolic 96–143; BP diastolic 49–75
[2018-04-03] MEDS: IPRATROPIUM/ALBUTEROL 0.5-3(2.5)MG/3ML NEB HHN SCH ×7 (00:15→21:27)
[2018-04-03] MEDS: METRONIDAZOLE 500 MG PREMIX 100 ML IV SCH ×3 (00:30→18:29)
[2018-04-03] MEDS: ACETAMINOPHEN 650MG/20.3ML UDC PO PRN ×2 (00:34→20:58)
[2018-04-03] MEDS: FENTANYL CITRATE/PF 500 MCG in SODIUM CHLORIDE 0.9% 40 ML IV PRN (02:05)
[2018-04-03] MEDS: SULFAMETHOXAZOLE/TRIMETHOPRIM 400/80MG TAB PO SCH (05:02)
[2018-04-03 05:19] LABS: COMPLEMENT C3 144 mg/dL (82-167)
[2018-04-03] MEDS: MIDAZOLAM HCL 100 MG in DEXT 5% WATER 80 ML IV PRN (05:29)
[2018-04-03 05:39] LABS: HEMATOCRIT. 33.6 % (36.0-48.0); HEMOGLOBIN. 9.9 g/dL (12.0-16.0); MEAN CORPUSCULAR HEMOGLOBIN 23.5 pg (28.0-32.0); MEAN CORPUSCULAR VOLUME 79.5 fL (81.0-99.0); PLATELET 370 x1000/uL (130-400); RED BLOOD CELL COUNT 4.22 mill/uL (4.2-5.4); RED CELL DISTRIBUTION WIDTH 18.8 % (11.6-14.6)
[2018-04-03 08:27] LABS: BG BASE EXCESS -1.6 mmol/L (-2.0-2.0); BG CARBOXYHEMOGLOBIN 0.5 % (0.5-1.5); BG DEOXYHEMOGLOBIN 8.2 % (0.0-5.0); BG FRACTION INSPIRED OXYGEN 100; BG HCO3 ACT 26.7 mmol/L (22.0-26.0); BG METHEMOGLOBIN 0.8 % (0.0-1.5); BG OXYGEN SATURATION 91.7 % (92.0-98.5); BG OXYHEMOGLOBIN 90.5 % (94.0-97.0); BG PCO2 64.4 mmHg (35.0-45.0); BG PH 7.236 (7.350-7.450); BG PO2 73.8 mmHg (75.0-100.0); BG SAMPLE SITE RIGHT RADIAL; BG TIDAL VOLUME(mL) 550 mL; BG TOTAL HEMOGLOBIN 10.7 g/dL (12.0-18.0); BG VENT MODE VENT - A/C; BG VENT RATE 28 set
[2018-04-03] MEDS ORDERED: METHYLPREDNISOLONE SOD SUCC 125 MG/2 ML VIAL IV NR (09:15)
[2018-04-03] MEDS: DOCUSATE SODIUM SUGAR FREE 100MG/10ML UDC NG SCH (09:57)
[2018-04-03] MEDS: PANTOPRAZOLE SODIUM 40 MG/VIAL IV SCH (09:58)
[2018-04-03] MEDS: FOLIC ACID 1MG TABLET PO SCH (09:58)
[2018-04-03] MEDS: MULTIVITAMINS,THER W-MINERALS TABLET PO SCH (09:58)
[2018-04-03] MEDS: DIPHENHYDRAMINE 50MG/ML VIAL IV PRN (09:58)
[2018-04-03] MEDS: THIAMINE HCL 100MG TABLET PO SCH (09:58)
[2018-04-03] MEDS: ENOXAPARIN 40MG/0.4ML SYR SUBCUT SCH (10:12)
[2018-04-03 10:38] LABS: PLATELET ESTIMATE NORMAL
[2018-04-03] MEDS: METHYLPREDNISOLONE SOD SUCC 125 MG/2 ML VIAL IV SCH (21:06)
[2018-04-04] VITALS (67 sets, daily range): BP systolic 100–135; BP diastolic 50–76
[2018-04-04] MEDS: IPRATROPIUM/ALBUTEROL 0.5-3(2.5)MG/3ML NEB HHN SCH ×5 (00:57→20:52)
[2018-04-04] MEDS: METRONIDAZOLE 500 MG PREMIX 100 ML IV SCH (01:55)
[2018-04-04] MEDS: FENTANYL CITRATE/PF 500 MCG in SODIUM CHLORIDE 0.9% 40 ML IV PRN ×2 (01:56→16:20)
[2018-04-04 05:15] LABS: HEMATOCRIT. 32.5 % (36.0-48.0); MEAN CORPUSCULAR HEMOGLOBIN 23.8 pg (28.0-32.0); MEAN CORPUSCULAR VOLUME 77.2 fL (81.0-99.0); MEAN PLATELET VOLUME 8.5 fl (7.4-10.4); PLATELET 411 x1000/uL (130-400); RED BLOOD CELL COUNT 4.21 mill/uL (4.2-5.4); RED CELL DISTRIBUTION WIDTH 18.8 % (11.6-14.6)
[2018-04-04 05:34] LABS: PHOSPHORUS 5.4 mg/dL (2.5-4.9)
[2018-04-04] MEDS: ACETAMINOPHEN 650MG/20.3ML UDC PO PRN (06:00)
[2018-04-04] MEDS: METHYLPREDNISOLONE SOD SUCC 125 MG/2 ML VIAL IV SCH ×3 (06:00→21:34)
[2018-04-04 08:27] LABS: BG BASE EXCESS 0.9 mmol/L (-2.0-2.0); BG CARBOXYHEMOGLOBIN 0.1 % (0.5-1.5); BG DEOXYHEMOGLOBIN 9.1 % (0.0-5.0); BG FRACTION INSPIRED OXYGEN 100; BG HCO3 ACT 27.4 mmol/L (22.0-26.0); BG METHEMOGLOBIN 0.1 % (0.0-1.5); BG OXYGEN SATURATION 90.9 % (92.0-98.5); BG OXYHEMOGLOBIN 90.7 % (94.0-97.0); BG PCO2 52.8 mmHg (35.0-45.0); BG PH 7.333 (7.350-7.450); BG PO2 69.1 mmHg (75.0-100.0); BG SAMPLE SITE RIGHT RADIAL; BG TIDAL VOLUME(mL) 600 mL; BG TOTAL HEMOGLOBIN 11.2 g/dL (12.0-18.0); BG VENT MODE VENT - A/C; BG VENT RATE 30 set
[2018-04-04] MEDS: DOCUSATE SODIUM SUGAR FREE 100MG/10ML UDC NG SCH (09:00)
[2018-04-04] MEDS: FOLIC ACID 1MG TABLET PO SCH (10:48)
[2018-04-04] MEDS: THIAMINE HCL 100MG TABLET PO SCH (10:48)
[2018-04-04] MEDS: MULTIVITAMINS,THER W-MINERALS TABLET PO SCH (10:48)
[2018-04-04] MEDS: ENOXAPARIN 40MG/0.4ML SYR SUBCUT SCH (10:50)
[2018-04-04] MEDS ORDERED: HEPARIN SODIUM 1,000 UNIT/1ML VIAL IV NR (11:00)
[2018-04-04 13:57] LABS: BG BASE EXCESS 3.5 mmol/L (-2.0-2.0); BG DEOXYHEMOGLOBIN 0.3 % (0.0-5.0); BG FRACTION INSPIRED OXYGEN 80; BG HCO3 ACT 28.5 mmol/L (22.0-26.0); BG METHEMOGLOBIN 0.1 % (0.0-1.5); BG OXYGEN SATURATION 99.7 % (92.0-98.5); BG OXYHEMOGLOBIN 99.6 % (94.0-97.0); BG PCO2 45.4 mmHg (35.0-45.0); BG PH 7.416 (7.350-7.450); BG PO2 312.3 mmHg (75.0-100.0); BG SAMPLE SITE RIGHT RADIAL; BG TIDAL VOLUME(mL) 580 mL; BG TOTAL HEMOGLOBIN 11.1 g/dL (12.0-18.0); BG VENT MODE VENT - A/C; BG VENT RATE 30 set
[2018-04-04] MEDS: PANTOPRAZOLE SODIUM 40 MG/VIAL IV SCH (14:00)
[2018-04-04] MEDS ORDERED: AZTREONAM 1G in DEXTROSE 5% WATER 50ML IV SCH (14:00)
[2018-04-04] MEDS: METRONIDAZOLE 500MG TABLET PO SCH ×2 (16:17→21:34)
[2018-04-04 17:16] LABS: BG BASE EXCESS 1.1 mmol/L (-2.0-2.0); BG CARBOXYHEMOGLOBIN 0.7 % (0.5-1.5); BG FRACTION INSPIRED OXYGEN 50; BG HCO3 ACT 28.6 mmol/L (22.0-26.0); BG METHEMOGLOBIN 0.3 % (0.0-1.5); BG OXYGEN SATURATION 91.9 % (92.0-98.5); BG PCO2 59.5 mmHg (35.0-45.0); BG PH 7.299 (7.350-7.450); BG PO2 73.2 mmHg (75.0-100.0); BG SAMPLE SITE RIGHT BRACHIAL; BG TIDAL VOLUME(mL) 580 mL; BG TOTAL HEMOGLOBIN 11.3 g/dL (12.0-18.0); BG VENT MODE VENT - A/C; BG VENT RATE 24 set
[2018-04-04 17:23] LABS: PLATELET ESTIMATE SLIGHTLY INCREASED
[2018-04-04] MEDS: NYSTATIN POWDER 15GM TOP SCH (18:00)
[2018-04-04] MEDS: AZTREONAM 500 MG in DEXTROSE 5% WATER 50 ML IV SCH (21:34)
[2018-04-05] VITALS (51 sets, daily range): BP systolic 106–140; BP diastolic 51–71
[2018-04-05] MEDS: IPRATROPIUM/ALBUTEROL 0.5-3(2.5)MG/3ML NEB HHN SCH ×6 (00:26→20:14)
[2018-04-05] MEDS: FENTANYL CITRATE/PF 500 MCG in SODIUM CHLORIDE 0.9% 40 ML IV PRN ×2 (02:20→14:12)
[2018-04-05 05:54] LABS: HEMOGLOBIN. 9.4 g/dL (12.0-16.0); MEAN CORPUSCULAR HEMOGLOBIN 23.4 pg (28.0-32.0); MEAN CORPUSCULAR VOLUME 76.9 fL (81.0-99.0); MEAN PLATELET VOLUME 8.5 fl (7.4-10.4); PLATELET 463 x1000/uL (130-400); RED BLOOD CELL COUNT 4.03 mill/uL (4.2-5.4); RED CELL DISTRIBUTION WIDTH 18.7 % (11.6-14.6)
[2018-04-05] MEDS: AZTREONAM 500 MG in DEXTROSE 5% WATER 50 ML IV SCH ×3 (06:26→22:46)
[2018-04-05] MEDS: ACETAMINOPHEN 650MG/20.3ML UDC PO PRN ×2 (06:26→21:03)
[2018-04-05] MEDS: METHYLPREDNISOLONE SOD SUCC 125 MG/2 ML VIAL IV SCH ×3 (06:26→22:46)
[2018-04-05 08:30] LABS: BG BASE EXCESS -1.9 mmol/L (-2.0-2.0); BG CARBOXYHEMOGLOBIN 0.7 % (0.5-1.5); BG DEOXYHEMOGLOBIN 11.4 % (0.0-5.0); BG FRACTION INSPIRED OXYGEN 50; BG METHEMOGLOBIN 0.4 % (0.0-1.5); BG OXYGEN SATURATION 88.5 % (92.0-98.5); BG OXYHEMOGLOBIN 87.5 % (94.0-97.0); BG PCO2 53.1 mmHg (35.0-45.0); BG PH 7.291 (7.350-7.450); BG PO2 62.5 mmHg (75.0-100.0); BG SAMPLE SITE RIGHT RADIAL; BG TIDAL VOLUME(mL) 580 mL; BG TOTAL HEMOGLOBIN 10.7 g/dL (12.0-18.0); BG VENT MODE VENT - A/C; BG VENT RATE 247 set
[2018-04-05] MEDS: DOCUSATE SODIUM SUGAR FREE 100MG/10ML UDC NG SCH (09:00)
[2018-04-05] MEDS: NYSTATIN POWDER 15GM TOP SCH (09:00)
[2018-04-05] MEDS: THIAMINE HCL 100MG TABLET PO SCH (09:03)
[2018-04-05] MEDS: FOLIC ACID 1MG TABLET PO SCH (09:03)
[2018-04-05] MEDS: METRONIDAZOLE 500MG TABLET PO SCH ×2 (09:03→21:05)
[2018-04-05] MEDS: ENOXAPARIN 40MG/0.4ML SYR SUBCUT SCH (09:03)
[2018-04-05] MEDS: PANTOPRAZOLE SODIUM 40 MG/VIAL IV SCH (09:03)
[2018-04-05 09:07] LABS: NUCLEATED RED BLOOD CELLS 2 /100 WBC; PLATELET ESTIMATE INCREASED
[2018-04-05] MEDS ORDERED: HEPARIN SODIUM 1,000 UNIT/1ML VIAL IV SCH (13:15)
[2018-04-06] VITALS (42 sets, daily range): BP systolic 114–156; BP diastolic 58–89
[2018-04-06] MEDS: IPRATROPIUM/ALBUTEROL 0.5-3(2.5)MG/3ML NEB HHN SCH ×6 (00:57→20:11)
[2018-04-06] MEDS: ACETAMINOPHEN 650MG/20.3ML UDC PO PRN (03:54)
[2018-04-06 05:06] LABS: HEMATOCRIT. 31.6 % (36.0-48.0); HEMOGLOBIN. 9.5 g/dL (12.0-16.0); MEAN CORPUSCULAR HEMOGLOBIN 23.4 pg (28.0-32.0); MEAN CORPUSCULAR VOLUME 77.6 fL (81.0-99.0); MEAN PLATELET VOLUME 8.7 fl (7.4-10.4); PLATELET 522 x1000/uL (130-400); RED BLOOD CELL COUNT 4.07 mill/uL (4.2-5.4); RED CELL DISTRIBUTION WIDTH 18.5 % (11.6-14.6)
[2018-04-06] MEDS: FENTANYL CITRATE/PF 500 MCG in SODIUM CHLORIDE 0.9% 40 ML IV PRN ×2 (05:29→17:44)
[2018-04-06] MEDS: METHYLPREDNISOLONE SOD SUCC 125 MG/2 ML VIAL IV SCH (05:40)
[2018-04-06] MEDS: AZTREONAM 500 MG in DEXTROSE 5% WATER 50 ML IV SCH ×3 (05:40→21:05)
[2018-04-06 07:36] LABS: NUCLEATED RED BLOOD CELLS 2 /100 WBC; PLATELET ESTIMATE INCREASED
[2018-04-06] MEDS: PANTOPRAZOLE SODIUM 40 MG/VIAL IV SCH (08:54)
[2018-04-06] MEDS: THIAMINE HCL 100MG TABLET PO SCH (08:54)
[2018-04-06] MEDS: FOLIC ACID 1MG TABLET PO SCH (08:54)
[2018-04-06] MEDS: METRONIDAZOLE 500MG TABLET PO SCH ×2 (08:54→21:05)
[2018-04-06] MEDS: NYSTATIN POWDER 15GM TOP SCH (08:58)
[2018-04-06] MEDS: ENOXAPARIN 40MG/0.4ML SYR SUBCUT SCH (08:58)
[2018-04-06] MEDS: DOCUSATE SODIUM SUGAR FREE 100MG/10ML UDC NG SCH (08:58)
[2018-04-06 09:52] LABS: BG BASE EXCESS -4.1 mmol/L (-2.0-2.0); BG CARBOXYHEMOGLOBIN 0.2 % (0.5-1.5); BG DEOXYHEMOGLOBIN 6.3 % (0.0-5.0); BG HCO3 ACT 22.5 mmol/L (22.0-26.0); BG METHEMOGLOBIN 0.3 % (0.0-1.5); BG OXYGEN SATURATION 93.7 % (92.0-98.5); BG OXYHEMOGLOBIN 93.2 % (94.0-97.0); BG PCO2 47.8 mmHg (35.0-45.0); BG PH 7.291 (7.350-7.450); BG PO2 81.2 mmHg (75.0-100.0); BG SAMPLE SITE RIGHT RADIAL; BG TIDAL VOLUME(mL) 580 mL; BG TOTAL HEMOGLOBIN 10.7 g/dL (12.0-18.0); BG VENT MODE VENT - A/C; BG VENT RATE 24 set
[2018-04-06] MEDS: METHYLPREDNISOLONE SOD SUCC 40 MG/ML VIAL IV SCH ×2 (13:17→21:04)
[2018-04-07] VITALS (38 sets, daily range): BP systolic 91–145; BP diastolic 49–90
[2018-04-07] MEDS: IPRATROPIUM/ALBUTEROL 0.5-3(2.5)MG/3ML NEB HHN SCH ×6 (00:12→20:14)
[2018-04-07] MEDS: METHYLPREDNISOLONE SOD SUCC 40 MG/ML VIAL IV SCH (05:27)
[2018-04-07] MEDS: AZTREONAM 500 MG in DEXTROSE 5% WATER 50 ML IV SCH ×3 (05:27→22:01)
[2018-04-07 05:54] LABS: HEMATOCRIT. 31.3 % (36.0-48.0); HEMOGLOBIN. 9.5 g/dL (12.0-16.0); MEAN CORPUSCULAR HEMOGLOBIN 23.5 pg (28.0-32.0); MEAN CORPUSCULAR VOLUME 77.3 fL (81.0-99.0); MEAN PLATELET VOLUME 8.6 fl (7.4-10.4); PLATELET 598 x1000/uL (130-400); RED BLOOD CELL COUNT 4.06 mill/uL (4.2-5.4); RED CELL DISTRIBUTION WIDTH 19.1 % (11.6-14.6)
[2018-04-07] MEDS: FENTANYL CITRATE/PF 500 MCG in SODIUM CHLORIDE 0.9% 40 ML IV PRN ×2 (06:34→18:53)
[2018-04-07 07:39] LABS: PLATELET ESTIMATE INCREASED
[2018-04-07 07:53] LABS: BG BASE EXCESS -4.4 mmol/L (-2.0-2.0); BG CARBOXYHEMOGLOBIN 0.3 % (0.5-1.5); BG DEOXYHEMOGLOBIN 1.3 % (0.0-5.0); BG FRACTION INSPIRED OXYGEN 50; BG HCO3 ACT 22.5 mmol/L (22.0-26.0); BG METHEMOGLOBIN 0.1 % (0.0-1.5); BG OXYGEN SATURATION 98.7 % (92.0-98.5); BG OXYHEMOGLOBIN 98.3 % (94.0-97.0); BG PCO2 49.6 mmHg (35.0-45.0); BG PH 7.275 (7.350-7.450); BG PO2 167.8 mmHg (75.0-100.0); BG SAMPLE SITE LEFT RADIAL; BG TIDAL VOLUME(mL) 580 mL; BG TOTAL HEMOGLOBIN 10.8 g/dL (12.0-18.0); BG VENT MODE VENT - A/C; BG VENT RATE 24 set
[2018-04-07] MEDS: DOCUSATE SODIUM SUGAR FREE 100MG/10ML UDC NG SCH (08:30)
[2018-04-07] MEDS: THIAMINE HCL 100MG TABLET PO SCH (08:38)
[2018-04-07] MEDS: ENOXAPARIN 40MG/0.4ML SYR SUBCUT SCH (08:38)
[2018-04-07] MEDS: PANTOPRAZOLE SODIUM 40 MG/VIAL IV SCH (08:38)
[2018-04-07] MEDS: FOLIC ACID 1MG TABLET PO SCH (08:38)
[2018-04-07] MEDS: NYSTATIN POWDER 15GM TOP SCH (09:34)
[2018-04-07] MEDS ORDERED: NOREPINEPHRINE 8 MG in DEXT 5% WATER 242 ML IV PRN (10:00)
[2018-04-07] MEDS ORDERED: HEPARIN SODIUM 1,000 UNIT/1ML VIAL IV NR (10:00)
[2018-04-07] MEDS: METRONIDAZOLE 500MG TABLET PO SCH ×2 (11:31→22:01)
[2018-04-07 13:34] LABS: BG BASE EXCESS -0.9 mmol/L (-2.0-2.0); BG CARBOXYHEMOGLOBIN 0.3 % (0.5-1.5); BG DEOXYHEMOGLOBIN 0.4 % (0.0-5.0); BG FRACTION INSPIRED OXYGEN 100; BG HCO3 ACT 24.5 mmol/L (22.0-26.0); BG METHEMOGLOBIN 0.3 % (0.0-1.5); BG OXYGEN SATURATION 99.6 % (92.0-98.5); BG PCO2 43.6 mmHg (35.0-45.0); BG PH 7.367 (7.350-7.450); BG PO2 403.3 mmHg (75.0-100.0); BG SAMPLE SITE LEFT RADIAL; BG TIDAL VOLUME(mL) 580 mL; BG TOTAL HEMOGLOBIN 11.5 g/dL (12.0-18.0); BG VENT MODE VENT - A/C; BG VENT RATE 26 set
[2018-04-07 16:57] LABS: HEPATITIS A AB IGM NEGATIVE (NEGATIVE)
[2018-04-07 17:33] LABS: HEPATITIS B SURFACE ANTIGEN NEGATIVE
[2018-04-08] VITALS (62 sets, daily range): BP systolic 103–164; BP diastolic 49–87
[2018-04-08] MEDS: IPRATROPIUM/ALBUTEROL 0.5-3(2.5)MG/3ML NEB HHN SCH ×6 (00:16→21:23)
[2018-04-08 06:00] LABS: HEMATOCRIT. 31.8 % (36.0-48.0); HEMOGLOBIN. 9.6 g/dL (12.0-16.0); MEAN CORPUSCULAR HEMOGLOBIN 23.1 pg (28.0-32.0); MEAN CORPUSCULAR VOLUME 76.4 fL (81.0-99.0); PLATELET 730 x1000/uL (130-400); RED BLOOD CELL COUNT 4.15 mill/uL (4.2-5.4); RED CELL DISTRIBUTION WIDTH 18.7 % (11.6-14.6)
[2018-04-08] MEDS: FENTANYL CITRATE/PF 500 MCG in SODIUM CHLORIDE 0.9% 40 ML IV PRN ×2 (07:26→16:10)
[2018-04-08 08:10] LABS: BG BASE EXCESS -3.3 mmol/L (-2.0-2.0); BG CARBOXYHEMOGLOBIN 0.3 % (0.5-1.5); BG DEOXYHEMOGLOBIN 5.5 % (0.0-5.0); BG FRACTION INSPIRED OXYGEN 40; BG HCO3 ACT 23.4 mmol/L (22.0-26.0); BG METHEMOGLOBIN 0.2 % (0.0-1.5); BG OXYGEN SATURATION 94.5 % (92.0-98.5); BG PCO2 49.5 mmHg (35.0-45.0); BG PH 7.293 (7.350-7.450); BG PO2 85.9 mmHg (75.0-100.0); BG SAMPLE SITE RIGHT RADIAL; BG TIDAL VOLUME(mL) 580 mL; BG TOTAL HEMOGLOBIN 11.8 g/dL (12.0-18.0); BG VENT MODE VENT - A/C; BG VENT RATE 26 set
[2018-04-08 08:56] LABS: INR 1.2; PARTIAL THROMBOPLASTIN TIME 24.5 sec (23.4-31.0); PROTHROMBIN TIME 11.9 sec (9.1-11.1)
[2018-04-08] MEDS: DOCUSATE SODIUM SUGAR FREE 100MG/10ML UDC NG SCH (09:00)
[2018-04-08] MEDS: METRONIDAZOLE 500MG TABLET PO SCH ×2 (09:00→21:00)
[2018-04-08] MEDS: FOLIC ACID 1MG TABLET PO SCH (09:00)
[2018-04-08] MEDS: ENOXAPARIN 40MG/0.4ML SYR SUBCUT SCH (09:00)
[2018-04-08] MEDS: THIAMINE HCL 100MG TABLET PO SCH (09:00)
[2018-04-08] MEDS: AZTREONAM 500 MG in DEXTROSE 5% WATER 50 ML IV SCH ×2 (09:12→13:56)
[2018-04-08] MEDS: PANTOPRAZOLE SODIUM 40 MG/VIAL IV SCH (09:23)
[2018-04-08 10:13] LABS: HIV SCREEN 4G Non Reactive (Non Reactive)
[2018-04-08] MEDS: METHYLPREDNISOLONE SOD SUCC 40 MG/ML VIAL IV SCH ×2 (10:36→17:40)
[2018-04-08 11:42] LABS: BG BASE EXCESS -2.9 mmol/L (-2.0-2.0); BG CARBOXYHEMOGLOBIN 0.3 % (0.5-1.5); BG DEOXYHEMOGLOBIN 4.3 % (0.0-5.0); BG HCO3 ACT 22.3 mmol/L (22.0-26.0); BG METHEMOGLOBIN 0.2 % (0.0-1.5); BG OXYGEN SATURATION 95.7 % (92.0-98.5); BG OXYHEMOGLOBIN 95.2 % (94.0-97.0); BG PCO2 40.2 mmHg (35.0-45.0); BG PH 7.362 (7.350-7.450); BG PO2 89.3 mmHg (75.0-100.0); BG SAMPLE SITE RIGHT RADIAL; BG TIDAL VOLUME(mL) 580 mL; BG TOTAL HEMOGLOBIN 10.9 g/dL (12.0-18.0); BG VENT MODE VENT - A/C; BG VENT RATE 26 set
[2018-04-08 13:44] LABS: PLATELET ESTIMATE MARKEDLY INCREASED
[2018-04-08] MEDS: NYSTATIN POWDER 15GM TOP SCH (13:56)
[2018-04-08] MEDS ORDERED: METRONIDAZOLE 500 MG PREMIX 100 ML IV ONE (18:56)
[2018-04-08] MEDS ORDERED: PHENYLEPHRINE HCL 10 MG/ML 1ML (IV VIAL) IV ONE ×2 (19:25→20:38)
[2018-04-08] MEDS ORDERED: ATROPINE SULFATE 1MG/10ML SYR ONE (19:30)
[2018-04-08] MEDS ORDERED: ROCURONIUM BROMIDE 10MG/ML VIAL 5ML IV ONE (20:33)
[2018-04-08] MEDS ORDERED: MIDAZOLAM HCL 2 MG/2 ML VIAL ONE (20:35)
[2018-04-08] MEDS ORDERED: SODIUM CHLORIDE 0.9% 10ML VIAL ONE (20:38)
[2018-04-09] VITALS (51 sets, daily range): BP systolic 105–150; BP diastolic 36–96
[2018-04-09] MEDS: IPRATROPIUM/ALBUTEROL 0.5-3(2.5)MG/3ML NEB HHN SCH ×6 (00:06→20:27)
[2018-04-09] MEDS: ACETAMINOPHEN 650MG/20.3ML UDC PO PRN ×2 (04:42→21:05)
[2018-04-09] MEDS: AZTREONAM 500 MG in DEXTROSE 5% WATER 50 ML IV SCH ×4 (04:42→21:16)
[2018-04-09 05:46] LABS: INR 1.2; PARTIAL THROMBOPLASTIN TIME 20.3 sec (23.4-31.0); PROTHROMBIN TIME 11.9 sec (9.1-11.1)
[2018-04-09 07:08] LABS: HEMATOCRIT. 31.4 % (36.0-48.0); HEMOGLOBIN. 9.7 g/dL (12.0-16.0); MEAN CORPUSCULAR HEMOGLOBIN 23.6 pg (28.0-32.0); MEAN CORPUSCULAR VOLUME 76.3 fL (81.0-99.0); MEAN PLATELET VOLUME 8.6 fl (7.4-10.4); PLATELET 756 x1000/uL (130-400); RED BLOOD CELL COUNT 4.11 mill/uL (4.2-5.4); RED CELL DISTRIBUTION WIDTH 18.5 % (11.6-14.6)
[2018-04-09 08:02] LABS: BG BASE EXCESS -6.2 mmol/L (-2.0-2.0); BG CARBOXYHEMOGLOBIN 0.3 % (0.5-1.5); BG DEOXYHEMOGLOBIN 5.3 % (0.0-5.0); BG FRACTION INSPIRED OXYGEN 80; BG HCO3 ACT 19.6 mmol/L (22.0-26.0); BG METHEMOGLOBIN 0.4 % (0.0-1.5); BG OXYGEN SATURATION 94.7 % (92.0-98.5); BG PH 7.308 (7.350-7.450); BG PO2 85.3 mmHg (75.0-100.0); BG SAMPLE SITE RIGHT RADIAL; BG TIDAL VOLUME(mL) 580 mL; BG TOTAL HEMOGLOBIN 10.9 g/dL (12.0-18.0); BG VENT MODE VENT - A/C; BG VENT RATE 26 set
[2018-04-09] MEDS: METRONIDAZOLE 500MG TABLET PO SCH ×2 (09:00→21:05)
[2018-04-09] MEDS: DOCUSATE SODIUM SUGAR FREE 100MG/10ML UDC NG SCH (09:00)
[2018-04-09 10:17] LABS: NUCLEATED RED BLOOD CELLS 1 /100 WBC; PLATELET ESTIMATE INCREASED
[2018-04-09] MEDS: PANTOPRAZOLE SODIUM 40 MG/VIAL IV SCH (10:23)
[2018-04-09] MEDS: NYSTATIN POWDER 15GM TOP SCH (10:24)
[2018-04-09] MEDS: METHYLPREDNISOLONE SOD SUCC 40 MG/ML VIAL IV SCH (10:24)
[2018-04-09] MEDS ORDERED: MIDAZOLAM HCL 5 MG/5 ML VIAL ONE (14:50)
[2018-04-09] MEDS ORDERED: FENTANYL CITRATE/PF 50MCG/ML 2ML VIAL ONE (14:51)
[2018-04-09] MEDS ORDERED: MIDAZOLAM HCL 5 MG/5 ML VIAL IV PRN (15:18)
[2018-04-09] MEDS ORDERED: FENTANYL CITRATE/PF 50MCG/ML 2ML VIAL IV PRN (15:19)
[2018-04-09] MEDS ORDERED: SODIUM CHLORIDE 0.9% 10ML VIAL ONE (15:43)
[2018-04-09] MEDS ORDERED: SIMETHICONE 40 MG/0.6 ML 30ML ONE (15:43)
[2018-04-09] MEDS: FOLIC ACID 1MG TABLET PO SCH (18:16)
[2018-04-09] MEDS: THIAMINE HCL 100MG TABLET PO SCH (18:16)
[2018-04-09] MEDS: METOCLOPRAMIDE HCL 10MG/2ML VIAL IV SCH ×2 (18:16→23:29)
[2018-04-09] MEDS: ENOXAPARIN 40MG/0.4ML SYR SUBCUT SCH (18:17)
[2018-04-09] MEDS: HYDROMORPHONE HCL/PF 2MG/ML CPJ IV PRN (21:02)
[2018-04-09] MEDS: LORAZEPAM 2MG/ML CPJ IV PRN (23:29)
[2018-04-10] VITALS (24 sets, daily range): BP systolic 88–144; BP diastolic 51–84
[2018-04-10] MEDS: IPRATROPIUM/ALBUTEROL 0.5-3(2.5)MG/3ML NEB HHN SCH ×7 (00:12→21:13)
[2018-04-10] MEDS: HYDROMORPHONE HCL/PF 2MG/ML CPJ IV PRN ×2 (02:13→16:45)
[2018-04-10] MEDS: ACETAMINOPHEN 650MG/20.3ML UDC PO PRN (04:07)
[2018-04-10] MEDS: METOCLOPRAMIDE HCL 10MG/2ML VIAL IV SCH ×3 (05:35→16:55)
[2018-04-10] MEDS: AZTREONAM 500 MG in DEXTROSE 5% WATER 50 ML IV SCH ×3 (05:35→21:17)
[2018-04-10 05:40] LABS: HEMATOCRIT. 34.1 % (36.0-48.0); HEMOGLOBIN. 10.7 g/dL (12.0-16.0); MEAN CORPUSCULAR HEMOGLOBIN 23.8 pg (28.0-32.0); MEAN CORPUSCULAR VOLUME 76.3 fL (81.0-99.0); MEAN PLATELET VOLUME 8.8 fl (7.4-10.4); PLATELET 903 x1000/uL (130-400); RED BLOOD CELL COUNT 4.47 mill/uL (4.2-5.4); RED CELL DISTRIBUTION WIDTH 18.7 % (11.6-14.6)
[2018-04-10 06:04] LABS: PHOSPHORUS 8.4 mg/dL (2.5-4.9)
[2018-04-10 07:19] LABS: BG BASE EXCESS -4.7 mmol/L (-2.0-2.0); BG CARBOXYHEMOGLOBIN 0.7 % (0.5-1.5); BG DEOXYHEMOGLOBIN 3.6 % (0.0-5.0); BG HCO3 ACT 19.9 mmol/L (22.0-26.0); BG METHEMOGLOBIN 0.4 % (0.0-1.5); BG OXYGEN SATURATION 96.4 % (92.0-98.5); BG OXYHEMOGLOBIN 95.3 % (94.0-97.0); BG PCO2 34.9 mmHg (35.0-45.0); BG PH 7.373 (7.350-7.450); BG PO2 92.2 mmHg (75.0-100.0); BG SAMPLE SITE RIGHT RADIAL; BG TIDAL VOLUME(mL) 580 mL; BG TOTAL HEMOGLOBIN 11.7 g/dL (12.0-18.0); BG VENT MODE VENT - A/C; BG VENT RATE 26 set
[2018-04-10 07:26] LABS: ATYPICAL LYMPHOCYTES 1; NUCLEATED RED BLOOD CELLS 1 /100 WBC; PLATELET ESTIMATE INCREASED
[2018-04-10] MEDS: PANTOPRAZOLE SODIUM 40 MG/VIAL IV SCH (08:44)
[2018-04-10] MEDS: METRONIDAZOLE 500MG TABLET PO SCH ×2 (08:45→21:17)
[2018-04-10] MEDS: ENOXAPARIN 40MG/0.4ML SYR SUBCUT SCH (08:45)
[2018-04-10] MEDS: FOLIC ACID 1MG TABLET PO SCH (08:45)
[2018-04-10] MEDS: DOCUSATE SODIUM SUGAR FREE 100MG/10ML UDC NG SCH (08:45)
[2018-04-10] MEDS: THIAMINE HCL 100MG TABLET PO SCH (08:45)
[2018-04-10] MEDS: METHYLPREDNISOLONE SOD SUCC 40 MG/ML VIAL IV SCH (08:45)
[2018-04-10] MEDS: NYSTATIN POWDER 15GM TOP SCH (08:47)
[2018-04-10] MEDS: SEVELAMER CARBONATE 800 MG TABLET PO SCH ×2 (13:03→16:46)
[2018-04-10 14:09] LABS: BG BASE EXCESS -6.3 mmol/L (-2.0-2.0); BG CARBOXYHEMOGLOBIN 1.3 % (0.5-1.5); BG DEOXYHEMOGLOBIN 11.1 % (0.0-5.0); BG HCO3 ACT 18.8 mmol/L (22.0-26.0); BG METHEMOGLOBIN 0.2 % (0.0-1.5); BG OXYGEN SATURATION 88.7 % (92.0-98.5); BG OXYHEMOGLOBIN 87.4 % (94.0-97.0); BG PCO2 35.7 mmHg (35.0-45.0); BG PH 7.339 (7.350-7.450); BG PO2 63.8 mmHg (75.0-100.0); BG SAMPLE SITE RIGHT RADIAL; BG TIDAL VOLUME(mL) 580 mL; BG TOTAL HEMOGLOBIN 11.9 g/dL (12.0-18.0); BG VENT MODE VENT - A/C; BG VENT RATE 26 set
[2018-04-10] MEDS: DIPHENHYDRAMINE 50MG/ML VIAL IV PRN (16:45)
[2018-04-11] VITALS (24 sets, daily range): BP systolic 91–138; BP diastolic 50–81
[2018-04-11] MEDS: METOCLOPRAMIDE HCL 10MG/2ML VIAL IV SCH ×5 (00:27→23:06)
[2018-04-11] MEDS: IPRATROPIUM/ALBUTEROL 0.5-3(2.5)MG/3ML NEB HHN SCH ×6 (01:24→23:44)
[2018-04-11 05:34] LABS: HEMATOCRIT. 33.1 % (36.0-48.0); HEMOGLOBIN. 10.2 g/dL (12.0-16.0); MEAN CORPUSCULAR HEMOGLOBIN 23.5 pg (28.0-32.0); MEAN CORPUSCULAR VOLUME 75.7 fL (81.0-99.0); MEAN PLATELET VOLUME 8.6 fl (7.4-10.4); PLATELET 876 x1000/uL (130-400); RED BLOOD CELL COUNT 4.37 mill/uL (4.2-5.4); RED CELL DISTRIBUTION WIDTH 19.1 % (11.6-14.6)
[2018-04-11] MEDS: SEVELAMER CARBONATE 800 MG TABLET PO SCH ×3 (05:40→17:33)
[2018-04-11] MEDS: AZTREONAM 500 MG in DEXTROSE 5% WATER 50 ML IV SCH ×3 (05:41→22:56)
[2018-04-11] MEDS: HYDROMORPHONE HCL/PF 2MG/ML CPJ IV PRN ×4 (05:44→23:51)
[2018-04-11 08:23] LABS: BG BASE EXCESS -6.2 mmol/L (-2.0-2.0); BG CARBOXYHEMOGLOBIN 0.7 % (0.5-1.5); BG DEOXYHEMOGLOBIN 6.5 % (0.0-5.0); BG FRACTION INSPIRED OXYGEN 60; BG HCO3 ACT 20.3 mmol/L (22.0-26.0); BG METHEMOGLOBIN 0.6 % (0.0-1.5); BG OXYGEN SATURATION 93.4 % (92.0-98.5); BG OXYHEMOGLOBIN 92.2 % (94.0-97.0); BG PCO2 44.4 mmHg (35.0-45.0); BG PH 7.279 (7.350-7.450); BG PO2 82.1 mmHg (75.0-100.0); BG SAMPLE SITE LEFT RADIAL; BG TIDAL VOLUME(mL) 580 mL; BG TOTAL HEMOGLOBIN 11.2 g/dL (12.0-18.0); BG VENT MODE VENT - A/C; BG VENT RATE 26 set
[2018-04-11] MEDS: LORAZEPAM 2MG/ML CPJ IV PRN ×2 (08:26→15:02)
[2018-04-11] MEDS: METHYLPREDNISOLONE SOD SUCC 40 MG/ML VIAL IV SCH (08:27)
[2018-04-11] MEDS: PANTOPRAZOLE SODIUM 40 MG/VIAL IV SCH (08:27)
[2018-04-11] MEDS: DOCUSATE SODIUM SUGAR FREE 100MG/10ML UDC NG SCH (08:27)
[2018-04-11] MEDS: METRONIDAZOLE 500MG TABLET PO SCH (08:27)
[2018-04-11] MEDS: THIAMINE HCL 100MG TABLET PO SCH (08:27)
[2018-04-11] MEDS: FOLIC ACID 1MG TABLET PO SCH (08:27)
[2018-04-11] MEDS: ENOXAPARIN 40MG/0.4ML SYR SUBCUT SCH (08:27)
[2018-04-11] MEDS: NYSTATIN POWDER 15GM TOP SCH (08:28)
[2018-04-11 10:01] LABS: PLATELET ESTIMATE INCREASED
[2018-04-11 16:04] LABS: BG BASE EXCESS -7.8 mmol/L (-2.0-2.0); BG CARBOXYHEMOGLOBIN 0.5 % (0.5-1.5); BG DEOXYHEMOGLOBIN 7.8 % (0.0-5.0); BG HCO3 ACT 18.4 mmol/L (22.0-26.0); BG METHEMOGLOBIN 0.4 % (0.0-1.5); BG OXYGEN SATURATION 92.1 % (92.0-98.5); BG OXYHEMOGLOBIN 91.3 % (94.0-97.0); BG PCO2 39.6 mmHg (35.0-45.0); BG PH 7.284 (7.350-7.450); BG PO2 74.6 mmHg (75.0-100.0); BG SAMPLE SITE RIGHT RADIAL; BG TIDAL VOLUME(mL) 580 mL; BG TOTAL HEMOGLOBIN 11.3 g/dL (12.0-18.0); BG VENT MODE VENT - A/C; BG VENT RATE 26 set
[2018-04-11] MEDS ORDERED: SODIUM BICARBONATE 8.4% 1 MEQ/ML 50ML SYR IV NR (17:56)
[2018-04-12] VITALS (30 sets, daily range): BP systolic 92–125; BP diastolic 50–76
[2018-04-12] MEDS: IPRATROPIUM/ALBUTEROL 0.5-3(2.5)MG/3ML NEB HHN SCH ×5 (04:05→20:44)
[2018-04-12 05:44] LABS: HEMOGLOBIN. 10.2 g/dL (12.0-16.0); MEAN CORPUSCULAR HEMOGLOBIN 23.4 pg (28.0-32.0); MEAN CORPUSCULAR VOLUME 75.4 fL (81.0-99.0); MEAN PLATELET VOLUME 8.7 fl (7.4-10.4); PLATELET 854 x1000/uL (130-400); RED BLOOD CELL COUNT 4.38 mill/uL (4.2-5.4); RED CELL DISTRIBUTION WIDTH 18.9 % (11.6-14.6)
[2018-04-12] MEDS: HYDROMORPHONE HCL/PF 2MG/ML CPJ IV PRN ×2 (05:45→17:29)
[2018-04-12] MEDS: SEVELAMER CARBONATE 800 MG TABLET PO SCH (06:18)
[2018-04-12] MEDS: METOCLOPRAMIDE HCL 10MG/2ML VIAL IV SCH ×4 (06:18→23:03)
[2018-04-12 07:27] LABS: NUCLEATED RED BLOOD CELLS 1 /100 WBC; PLATELET ESTIMATE INCREASED
[2018-04-12] MEDS ORDERED: HEPARIN SODIUM 1,000 UNIT/1ML VIAL IV NR (09:00)
[2018-04-12] MEDS: METHYLPREDNISOLONE SOD SUCC 40 MG/ML VIAL IV SCH (10:55)
[2018-04-12] MEDS: PANTOPRAZOLE SODIUM 40 MG/VIAL IV SCH (10:55)
[2018-04-12] MEDS: ENOXAPARIN 40MG/0.4ML SYR SUBCUT SCH (10:55)
[2018-04-12] MEDS: THIAMINE HCL 100MG TABLET PO SCH (10:57)
[2018-04-12] MEDS: FOLIC ACID 1MG TABLET PO SCH (10:57)
[2018-04-12 12:57] LABS: BG BASE EXCESS -1.6 mmol/L (-2.0-2.0); BG CARBOXYHEMOGLOBIN 0.5 % (0.5-1.5); BG DEOXYHEMOGLOBIN 1.1 % (0.0-5.0); BG FRACTION INSPIRED OXYGEN 60; BG HCO3 ACT 22.1 mmol/L (22.0-26.0); BG METHEMOGLOBIN 0.4 % (0.0-1.5); BG OXYGEN SATURATION 98.9 % (92.0-98.5); BG PCO2 33.8 mmHg (35.0-45.0); BG PH 7.433 (7.350-7.450); BG SAMPLE SITE RIGHT RADIAL; BG TIDAL VOLUME(mL) 580 mL; BG TOTAL HEMOGLOBIN 12.4 g/dL (12.0-18.0); BG VENT MODE VENT - A/C; BG VENT RATE 26 set
[2018-04-12] MEDS: LANTHANUM CARBONATE 500MG CHEW TABLET PO SCH ×2 (13:17→17:28)
[2018-04-12] MEDS: NYSTATIN POWDER 15GM TOP SCH (13:22)
[2018-04-13] VITALS (24 sets, daily range): BP systolic 105–142; BP diastolic 54–78
[2018-04-13] MEDS: IPRATROPIUM/ALBUTEROL 0.5-3(2.5)MG/3ML NEB HHN SCH ×6 (00:14→20:33)
[2018-04-13] MEDS: LORAZEPAM 2MG/ML CPJ IV PRN ×2 (02:11→15:08)
[2018-04-13 06:01] LABS: HEMATOCRIT. 36.6 % (36.0-48.0); HEMOGLOBIN. 11.3 g/dL (12.0-16.0); MEAN CORPUSCULAR HEMOGLOBIN 23.5 pg (28.0-32.0); MEAN PLATELET VOLUME 8.8 fl (7.4-10.4); PLATELET 894 x1000/uL (130-400); RED BLOOD CELL COUNT 4.82 mill/uL (4.2-5.4)
[2018-04-13] MEDS: LANTHANUM CARBONATE 500MG CHEW TABLET PO SCH ×3 (06:15→17:55)
[2018-04-13] MEDS: METOCLOPRAMIDE HCL 10MG/2ML VIAL IV SCH ×4 (06:15→23:29)
[2018-04-13 06:46] LABS: CREATINE KINASE 1850 IU/L (26-192)
[2018-04-13 08:33] LABS: PLATELET ESTIMATE MARKEDLY INCREASED
[2018-04-13] MEDS ORDERED: NYSTATIN POWDER 15GM TOP SCH (09:00)
[2018-04-13] MEDS: METHYLPREDNISOLONE SOD SUCC 40 MG/ML VIAL IV SCH (09:08)
[2018-04-13] MEDS: PANTOPRAZOLE SODIUM 40 MG/VIAL IV SCH (09:08)
[2018-04-13] MEDS: ACETAMINOPHEN 650MG/20.3ML UDC PO PRN ×2 (09:08→17:55)
[2018-04-13] MEDS: FOLIC ACID 1MG TABLET PO SCH (09:08)
[2018-04-13] MEDS: THIAMINE HCL 100MG TABLET PO SCH (09:08)
[2018-04-13] MEDS: ENOXAPARIN 40MG/0.4ML SYR SUBCUT SCH (09:08)
[2018-04-13] MEDS: HYDROMORPHONE HCL/PF 2MG/ML CPJ IV PRN ×2 (09:09→17:56)
[2018-04-13] MEDS: NYSTATIN POWDER 15GM TOP SCH (09:10)
[2018-04-13 10:54] LABS: BG BASE EXCESS -5.3 mmol/L (-2.0-2.0); BG CARBOXYHEMOGLOBIN 0.8 % (0.5-1.5); BG DEOXYHEMOGLOBIN 2.9 % (0.0-5.0); BG FRACTION INSPIRED OXYGEN 45; BG HCO3 ACT 19.9 mmol/L (22.0-26.0); BG METHEMOGLOBIN 0.5 % (0.0-1.5); BG OXYGEN SATURATION 97.1 % (92.0-98.5); BG OXYHEMOGLOBIN 95.8 % (94.0-97.0); BG PH 7.338 (7.350-7.450); BG PO2 101.1 mmHg (75.0-100.0); BG SAMPLE SITE LEFT RADIAL; BG TIDAL VOLUME(mL) 550 mL; BG VENT MODE VENT - A/C; BG VENT RATE 24 set
[2018-04-13] MEDS ORDERED: LIDOCAINE HCL/EPINEPHRINE 1%-EPI 1:100,000 20 ML VIAL INFIL NR (16:00)
[2018-04-14] VITALS: BP 122/65
[2018-04-14 00:01] VITALS: BP 122/65
== END 2018-04-14 00:30 | disposition short-term general hospital (02) | DRG 3 ==
LOC: ER 13:27 → MICUNO 14:47 → EDBEDREQ 14:50 → EDBEDREQSVC 14:50 → SUPCPDRO 18:23 → EDBEDREQ 19:00 → ENRESERV 19:35
PROVIDERS: ADMIT Hospitalist; ATTEND Hospitalist
PROC: 5A1955Z Respiratory Ventilation, Greater than 96 Consecutive Hours (ICD-10-PCS; principal; 2018-03-24)
PROC: 5A09357 Assistance with Respiratory Ventilation, Less than 24 Consecutive Hours, Continuous Positive Airway Pressure (ICD-10-PCS; 2018-03-24)
PROC: 0BH17EZ Insertion of Endotracheal Airway into Trachea, Via Natural or Artificial Opening (ICD-10-PCS; 2018-03-24)
PROC: 02HV33Z Insertion of Infusion Device into Superior Vena Cava, Percutaneous Approach (ICD-10-PCS; 2018-03-26)
PROC: B548ZZA Ultrasonography of Superior Vena Cava, Guidance (ICD-10-PCS; 2018-03-26)
PROC: 0B21XEZ Change Endotracheal Airway in Trachea, External Approach (ICD-10-PCS; 2018-03-29)
PROC: 5A1D70Z Performance of Urinary Filtration, Intermittent, Less than 6 Hours Per Day (ICD-10-PCS; 2018-04-02)
PROC: 02HV33Z Insertion of Infusion Device into Superior Vena Cava, Percutaneous Approach (ICD-10-PCS; 2018-04-02)
PROC: B548ZZA Ultrasonography of Superior Vena Cava, Guidance (ICD-10-PCS; 2018-04-02)
PROC: 5A1D70Z Performance of Urinary Filtration, Intermittent, Less than 6 Hours Per Day (ICD-10-PCS; 2018-04-03)
PROC: 5A1D70Z Performance of Urinary Filtration, Intermittent, Less than 6 Hours Per Day (ICD-10-PCS; 2018-04-04)
PROC: 5A1D70Z Performance of Urinary Filtration, Intermittent, Less than 6 Hours Per Day (ICD-10-PCS; 2018-04-05)
PROC: 5A1D70Z Performance of Urinary Filtration, Intermittent, Less than 6 Hours Per Day (ICD-10-PCS; 2018-04-07)
PROC: 0B110F4 Bypass Trachea to Cutaneous with Tracheostomy Device, Open Approach (ICD-10-PCS; 2018-04-08)
PROC: 0GBJ0ZZ Excision of Thyroid Gland Isthmus, Open Approach (ICD-10-PCS; 2018-04-08)
PROC: 5A1D70Z Performance of Urinary Filtration, Intermittent, Less than 6 Hours Per Day (ICD-10-PCS; 2018-04-09)
PROC: 0DH63UZ Insertion of Feeding Device into Stomach, Percutaneous Approach (ICD-10-PCS; 2018-04-09)
PROC: 5A1D70Z Performance of Urinary Filtration, Intermittent, Less than 6 Hours Per Day (ICD-10-PCS; 2018-04-12)
PROC: 5A1D70Z Performance of Urinary Filtration, Intermittent, Less than 6 Hours Per Day (ICD-10-PCS; 2018-04-13)
PROC: 5A1D70Z Performance of Urinary Filtration, Intermittent, Less than 6 Hours Per Day (ICD-10-PCS; 2018-04-14)
DX: A41.51 Sepsis due to Escherichia coli [E. coli] (principal); J96.21 Acute and chronic respiratory failure with hypoxia; I50.43 Acute on chronic combined systolic (congestive) and diastolic (congestive) heart failure; N17.0 Acute kidney failure with tubular necrosis; I26.99 Other pulmonary embolism without acute cor pulmonale; J96.22 Acute and chronic respiratory failure with hypercapnia; E66.2 Morbid (severe) obesity with alveolar hypoventilation; E44.0 Moderate protein-calorie malnutrition; J68.0 Bronchitis and pneumonitis due to chemicals, gases, fumes and vapors; M62.82 Rhabdomyolysis; N39.0 Urinary tract infection, site not specified; Z68.44 Body mass index [BMI] 60.0-69.9, adult; E87.0 Hyperosmolality and hypernatremia; E87.2 Acidosis; T40.5X1A Poisoning by cocaine, accidental (unintentional), initial encounter; R65.20 Severe sepsis without septic shock; G47.33 Obstructive sleep apnea (adult) (pediatric); I11.0 Hypertensive heart disease with heart failure; D64.9 Anemia, unspecified; D75.89 Other specified diseases of blood and blood-forming organs; E78.1 Pure hyperglyceridemia; E83.39 Other disorders of phosphorus metabolism; E87.5 Hyperkalemia; F14.10 Cocaine abuse, uncomplicated; I25.10 Atherosclerotic heart disease of native coronary artery without angina pectoris; I48.0 Paroxysmal atrial fibrillation; I95.81 Postprocedural hypotension; I44.0 Atrioventricular block, first degree; I27.20 Pulmonary hypertension, unspecified; K29.70 Gastritis, unspecified, without bleeding; L89.150 Pressure ulcer of sacral region, unstageable; L89.320 Pressure ulcer of left buttock, unstageable; R13.10 Dysphagia, unspecified; R50.82 Postprocedural fever; T38.0X5A Adverse effect of glucocorticoids and synthetic analogues, initial encounter; S30.820A Blister (nonthermal) of lower back and pelvis, initial encounter; X58.XXXA Exposure to other specified factors, initial encounter; Z78.1 Physical restraint status; Z86.711 Personal history of pulmonary embolism; Z87.891 Personal history of nicotine dependence; Z88.0 Allergy status to penicillin; Z99.2 Dependence on renal dialysis; Z99.81 Dependence on supplemental oxygen; Y92.89 Other specified places as the place of occurrence of the external cause; Y93.89 Activity, other specified; Y99.8 Other external cause status
CPT/HCPCS: 31500; 36415; 36556; 36569; 36600; 71045; 76770; 76937; 78580; 80048; 80061; 80202; 80305; 82375; 82550; 82553; 82805; 82962; 83036; 83605; 83735; 83880; 84100; 84134; 84145; 84439; 84443; 84478; 84484; 84520; 85007; 85027; 85379; 86038; 86160; 86705; 86709; 86803; 87070; 87077; 87186; 87340; 87389; 87804; 93005; 93306; 93970; 94002; 94003; 94640; 94660; 94667; 96374; 96375; 97162; 99291; A6261; C1725; C1752; C1769; C9113; J0330; J0360; J0461; J0696; J1170; J1200; J1265; J1644; J1650; J1940; J1956; J2060; J2250; J2270; J2370; J2704; J2765; J2920; J2930; J3010; J3370; J3490; J7030; J7040; J7050; J7060; J7608; J7620; A4315